=== PATIENT | female | born 1970 | race Caucasian/White ===

== ENCOUNTER 2016-05-21 23:56 | Emergency (ER) | payer OTHER ==
[~2016-05-21] VITALS: Ht 154.9 cm; Wt 74.8 kg
[~2016-05-21 23:56] MED LIST: LORA-258 PO
[2016-05-22 00:40] VITALS: BP_SYST 174
[2016-05-22] MEDS ORDERED: [UNRECOGNIZED DRUG - REMARK] PO (01:05)
[2016-05-22] MEDS ORDERED: ALBU8.5H8 INH (01:05)
[2016-05-22] MEDS ORDERED: LORazepam 2 MG/ML VIAL (FOR ER USE) IM ONE (01:45)
[2016-05-22] MEDS ORDERED: KETOROLAC TROMETHAMINE 60 MG/2 ML VIAL IM ONE (01:45)
[2016-05-22] MEDS: PROCHLORPERAZINE EDISYLATE 10 MG/2 ML VIAL IM ONE ×2 (02:08→02:19)
[2016-05-22 02:35] VITALS: BP_SYST 157
== END 2016-05-22 02:35 | disposition home or self-care (01) ==
LOC: SED 23:56
DX: M54.2 Cervicalgia (principal); M54.9 Dorsalgia, unspecified; I10 Essential (primary) hypertension; J45.909 Unspecified asthma, uncomplicated; F41.9 Anxiety disorder, unspecified; E78.00 Pure hypercholesterolemia, unspecified
CPT/HCPCS: 93005; 96374; 96375; 99284; J0780; J1885; J2060

== ENCOUNTER 2018-03-24 11:23 | Emergency (ER) | payer MEDICAID ==
[~2018-03-24] VITALS: Ht 154.9 cm; Wt 72.6 kg
[~2018-03-24 11:23] MED LIST changes: +ALBU8.5H8 INH; +[UNRECOGNIZED DRUG - REMARK] PO
[2018-03-24 11:27] VITALS: BP_SYST 140
[2018-03-24] MEDS ORDERED: MORPHINE 4 MG/ML INJ. SYRINGE IVP ONE ×2 (11:45→12:45)
[2018-03-24] MEDS ORDERED: METHADONE HCL 10 MG TABLET PO ONE ×2 (11:45)
[2018-03-24] MEDS ORDERED: FERROUS SULFATE PO (12:08)
[2018-03-24] MEDS ORDERED: OXYC-128 PO (12:08)
[2018-03-24] MEDS ORDERED: SULF1TAB3 PO (12:08)
[2018-03-24 12:13] LABS: BILIRUBIN,URINE NEGATIVE (NEGATIVE); BLOOD, URINE 1+ (NEGATIVE); CLARITY/URINE CLEAR (CLEAR); COLOR,URINE YELLOW (YELLOW); GLUCOSE,URINE NEGATIVE (NEGATIVE); KETONES,URINE NEGATIVE (NEGATIVE); LEUKOCYTE ESTERASE ,URINE 2+ (NEGATIVE); NITRITE, URINE NEGATIVE (NEGATIVE); PH,URINE 6.5 (5.0-8.0); PROTEIN URINE TRACE (NEGATIVE); UROBILINOGEN,URINE 0.2 (0.2-1.0)
[2018-03-24 12:18] LABS: BACTERIA,URINE FEW /HPF (None Seen); MUCUS,URINE 1+ /LPF (None Seen); YEAST,URINE Few /HPF (None Seen)
[2018-03-24 12:27] LABS: EOSINOPHILS # (AUTO) 0.2 K/uL (0.0-0.4); PLATELET COUNT (AUTO) 668 K/uL (130-430); WHITE BLOOD COUNT (AUTO) 6.5 K/uL (4.8-10.8)
[2018-03-24 12:30] LABS: CALCIUM 8.7 mg/dL (8.4-11.0); CREATININE 0.9 mg/dL (0.55-1.30); POTASSIUM 4.3 mmol/L (3.5-5.1)
[2018-03-24 12:35] LABS: ALBUMIN 3.2 g/dL (3.4-4.8); TOTAL BILIRUBIN 0.6 mg/dL (0.0-1.0)
[2018-03-24] MEDS ORDERED: cefTRIAXone 1 GM IVPB PREMIX 50 ML IV ONE (12:45)
[2018-03-24] MEDS ORDERED: NACL 0.9% 1,000 ML IV ONE (12:45)
[2018-03-24 12:48] LABS: BASOPHILS # (AUTO) 0.1 K/uL (0.0-0.2); BASOPHILS % (AUTO) 1.6 % (0.0-2.0); EOSINOPHILS % (AUTO) 3.7 % (0.0-4.0); HEMATOCRIT 38.8 % (36-48); HEMOGLOBIN 12.6 g/dL (12.0-16.0); LYMPHOCYTES # (AUTO) 2.3 K/uL (1.0-5.5); LYMPHOCYTES % (AUTO) 34.6 % (20.5-51.5); MEAN CORPUSCULAR HEMOGLOBIN 29 pg (27-31); MEAN CORPUSCULAR HGB CONC 33 % (32-36); MEAN CORPUSCULAR VOLUME 88 fL (79.0-98.0); MONOCYTES # (AUTO) 0.6 K/uL (0.0-1.0); MONOCYTES % (AUTO) 8.9 % (1.7-9.3); NEUTROPHILS # (AUTO) 3.3 K/uL (1.8-7.7); NEUTROPHILS % (AUTO) 51.2 % (40.0-70.0); RED BLOOD CELL COUNT(AUTO) 4.43 MIL/uL (4.2-6.2); RED CELL DISTRIBUTION WIDTH 15.8 % (9.0-15.0)
[2018-03-24] MEDS ORDERED: hydrALAZINE HCL 20 MG/ML VIAL IVP ONE (13:30)
[2018-03-24] MEDS ORDERED: fentaNYL CITRATE/PF 100 MCG/2 ML AMP IVP ONE (15:15)
[2018-03-24 16:34] VITALS: BP_SYST 140
== END 2018-03-24 16:19 | disposition home or self-care (01) ==
LOC: SED 11:23
DX: N20.0 Calculus of kidney (principal); N39.0 Urinary tract infection, site not specified; E78.00 Pure hypercholesterolemia, unspecified; J45.909 Unspecified asthma, uncomplicated; I10 Essential (primary) hypertension; Z90.49 Acquired absence of other specified parts of digestive tract; Z79.899 Other long term (current) drug therapy
CPT/HCPCS: 36415; 80053; 81000; 81025; 85025; 87040; 87086; 96365; 96375; 96376; 99283; J0360; J0696; J2270; J3010; J7030

== ENCOUNTER 2018-04-11 09:37 | Inpatient (IN) | payer MEDICAID, OTHER ==
[~2018-04-11] VITALS: Ht 154.9 cm; Wt 73.5 kg
[~2018-04-11 09:37] MED LIST changes: +FERROUS SULFATE PO; +OXYC-128 PO; +SULF1TAB3 PO
[2018-04-11] MEDS ORDERED: NACL 0.9% 1,000 ML IV ONE (09:41)
[2018-04-11] MEDS ORDERED: MORPHINE 4 MG/ML INJ. SYRINGE IVP ONE ×2 (09:45→10:30)
[2018-04-11] MEDS ORDERED: ONDANSETRON HCL 4 MG/2 ML VIAL IVP ONE (09:45)
[2018-04-11 09:52] VITALS: BP_SYST 159
[2018-04-11 10:19] LABS: HEMATOCRIT 37.3 % (36-48); HEMOGLOBIN 12.3 g/dL (12.0-16.0); MEAN CORPUSCULAR HEMOGLOBIN 29 pg (27-31); MEAN CORPUSCULAR HGB CONC 33 % (32-36); MEAN CORPUSCULAR VOLUME 89 fL (79.0-98.0); RED BLOOD CELL COUNT(AUTO) 4.21 MIL/uL (4.2-6.2); RED CELL DISTRIBUTION WIDTH 17.2 % (9.0-15.0)
[2018-04-11 10:20] LABS: BASOPHILS # (AUTO) 0.1 K/uL (0.0-0.2); BASOPHILS % (AUTO) 0.9 % (0.0-2.0); EOSINOPHILS # (AUTO) 0.3 K/uL (0.0-0.4); EOSINOPHILS % (AUTO) 2.6 % (0.0-4.0); LYMPHOCYTES # (AUTO) 2.5 K/uL (1.0-5.5); LYMPHOCYTES % (AUTO) 18.6 % (20.5-51.5); MONOCYTES # (AUTO) 1.3 K/uL (0.0-1.0); NEUTROPHILS # (AUTO) 9.1 K/uL (1.8-7.7); NEUTROPHILS % (AUTO) 67.9 % (40.0-70.0); PLATELET COUNT (AUTO) 360 K/uL (130-430)
[2018-04-11 10:21] LABS: WHITE BLOOD COUNT (AUTO) 13.3 K/uL (4.8-10.8)
[2018-04-11 10:26] LABS: CALCIUM 8.8 mg/dL (8.4-11.0); CREATININE 0.91 mg/dL (0.55-1.30); POTASSIUM 4.1 mmol/L (3.5-5.1)
[2018-04-11] MEDS ORDERED: DIPHENHYDRAMINE INJ 50 MG/ML VIAL IVP ONE (10:30)
[2018-04-11 10:31] LABS: INR 0.9 (0.8-1.2); PROTHROMBIN TIME 9.3 SECS (9.5-12.5)
[2018-04-11 10:32] LABS: ALBUMIN 3.1 g/dL (3.4-4.8); TOTAL BILIRUBIN 0.4 mg/dL (0.0-1.0)
[2018-04-11 10:42] LABS: BILIRUBIN,URINE NEGATIVE (NEGATIVE); BLOOD, URINE 3+ (NEGATIVE); CLARITY/URINE CLEAR (CLEAR); COLOR,URINE YELLOW (YELLOW); GLUCOSE,URINE NEGATIVE (NEGATIVE); KETONES,URINE NEGATIVE (NEGATIVE); LEUKOCYTE ESTERASE ,URINE 1+ (NEGATIVE); NITRITE, URINE NEGATIVE (NEGATIVE); PROTEIN URINE NEGATIVE (NEGATIVE); UROBILINOGEN,URINE 0.2 (0.2-1.0)
[2018-04-11 10:53] LABS: BARBITURATE, URINE NEGATIVE (NEG <=200); METHAMPHETAMINES SCREEN,URINE NEGATIVE (NEG <=500); OPIATE, URINE POSITIVE (NEG <=100); URINE AMPHETAMINE NEGATIVE (NEG <=500)
[2018-04-11 10:54] LABS: BENZODIAZEPINE, URINE NEGATIVE (NEG <=150); CANNABINOID, URINE NEGATIVE (NEG <=50); COCAINE, URINE NEGATIVE (NEG <=150); PHENCYCLIDINE SCREEN,URINE NEGATIVE (NEG <=25); UR TRICYCLIC ANTIDEPRESSANTS NEGATIVE (NEG <=300); URINE METHADONE NEGATIVE (NEG <=200); URINE OXYCODONE SCREEN NEGATIVE (NEG <=100); URINE PROPOXYPHENE SCREEN NEGATIVE (NEG <=300)
[2018-04-11 11:01] LABS: BACTERIA,URINE FEW /HPF (None Seen); MUCUS,URINE None Seen /LPF (None Seen); YEAST,URINE None Seen /HPF (None Seen)
[2018-04-11] MEDS ORDERED: KETOROLAC TROMETHAMINE 15 MG VIAL IVP PRN (12:00)
[2018-04-11] MEDS ORDERED: OXYCODONE/ACETAMINOPHEN 5-325 TABLET PO PRN (12:00)
[2018-04-11] MEDS ORDERED: ACETAMINOPHEN 325 MG TABLET PO PRN (12:00)
[2018-04-11] MEDS ORDERED: ZOLPIDEM TARTRATE 5 MG TABLET PO PRN (12:00)
[2018-04-11] MEDS ORDERED: MUPIROCIN 2% TOPICAL OINTMENT 22 GM TP PRN (12:00)
[2018-04-11] MEDS ORDERED: LORazepam 2 MG/ML VIAL IVP PRN (12:00)
[2018-04-11] MEDS ORDERED: MORPHINE 4 MG/ML INJ. SYRINGE IVP PRN (12:00)
[2018-04-11] MEDS ORDERED: DOCUSATE SODIUM 100 MG CAPSULE PO PRN (12:00)
[2018-04-11] MEDS ORDERED: cloNIDine HCL 0.1 MG TABLET PO PRN (12:15)
[2018-04-11 12:37] VITALS: BP_SYST 163
[2018-04-11 12:58] LABS: PHOSPHORUS 3.7 mg/dL (2.7-4.5); THYROID STIMULATING HORMONE 1.61 uIu/mL (0.34-4.82)
[2018-04-11] MEDS: NACL 0.9% 1,000 ML IV SCH (13:09)
[2018-04-11] MEDS: CEFTRIAXONE SOD 1 GM/ DEXTROSE,ISO 50 ML PREMIX IV SCH (13:37)
[2018-04-11 15:16] VITALS: BP_SYST 138
[2018-04-11] MEDS: ONDANSETRON HCL 4 MG/2 ML VIAL IVP PRN (15:17)
[2018-04-11] MEDS: OXYCODONE/ACETAMINOPHEN *10*mg/325 mg TABLET PO SCH ×2 (18:06→21:56)
[2018-04-11] MEDS: HYDROmorphone 2 MG/ML VIAL IVP PRN (20:35)
[2018-04-11] MEDS ORDERED: BACLOFEN 10 MG TABLET PO SCH (21:00)
[2018-04-11 22:00] VITALS: BP_SYST 142
[2018-04-12 00:13] VITALS: BP_SYST 132
[2018-04-12] MEDS: OXYCODONE/ACETAMINOPHEN *10*mg/325 mg TABLET PO SCH ×2 (01:30→05:54)
[2018-04-12] MEDS: HYDROmorphone 2 MG/ML VIAL IVP PRN ×5 (01:35→22:18)
[2018-04-12] MEDS: NACL 0.9% 1,000 ML IV SCH ×2 (01:36→17:07)
[2018-04-12 07:38] LABS: CREATININE 0.92 mg/dL (0.55-1.30); PHOSPHORUS 3.1 mg/dL (2.7-4.5); POTASSIUM 4.1 mmol/L (3.5-5.1)
[2018-04-12 08:00] LABS: HEMATOCRIT 34.4 % (36-48); HEMOGLOBIN 11.4 g/dL (12.0-16.0); MEAN CORPUSCULAR HEMOGLOBIN 30 pg (27-31); MEAN CORPUSCULAR VOLUME 89 fL (79.0-98.0); RED BLOOD CELL COUNT(AUTO) 3.86 MIL/uL (4.2-6.2); WHITE BLOOD COUNT (AUTO) 10.2 K/uL (4.8-10.8)
[2018-04-12 08:01] LABS: BASOPHILS % (AUTO) 0.4 % (0.0-2.0); EOSINOPHILS # (AUTO) 0.4 K/uL (0.0-0.4); EOSINOPHILS % (AUTO) 4.3 % (0.0-4.0); LYMPHOCYTES % (AUTO) 28.9 % (20.5-51.5); MEAN CORPUSCULAR HGB CONC 33 % (32-36); MONOCYTES # (AUTO) 1.2 K/uL (0.0-1.0); MONOCYTES % (AUTO) 11.8 % (1.7-9.3); NEUTROPHILS # (AUTO) 5.6 K/uL (1.8-7.7); NEUTROPHILS % (AUTO) 54.6 % (40.0-70.0); PLATELET COUNT (AUTO) 347 K/uL (130-430); RED CELL DISTRIBUTION WIDTH 17.6 % (9.0-15.0)
[2018-04-12] MEDS: ONDANSETRON HCL 4 MG/2 ML VIAL IVP PRN ×2 (08:51→14:07)
[2018-04-12] MEDS: CEFTRIAXONE SOD 1 GM/ DEXTROSE,ISO 50 ML PREMIX IV SCH (08:52)
[2018-04-12] MEDS: HYDROmorphone 2 MG TAB PO SCH ×4 (09:00→20:34)
[2018-04-12] MEDS ORDERED: cefTRIAXone 1 GM VIAL IV SCH (09:00)
[2018-04-12] MEDS ORDERED: HYDROmorphone 2 MG TAB PO SCH (09:00)
[2018-04-12] MEDS: BACLOFEN 10 MG TABLET PO SCH ×3 (09:00→20:34)
[2018-04-12 11:36] VITALS: BP_SYST 110
[2018-04-12 15:46] VITALS: BP_SYST 143
[2018-04-12 20:00] VITALS: BP_SYST 128
[2018-04-12 22:37] VITALS: BP_SYST 156
[2018-04-13] MEDS: HYDROmorphone 2 MG TAB PO SCH ×3 (01:00→09:16)
[2018-04-13 06:28] LABS: CALCIUM 8.2 mg/dL (8.4-11.0); CREATININE 0.88 mg/dL (0.55-1.30); POTASSIUM 4.3 mmol/L (3.5-5.1)
[2018-04-13 07:14] LABS: HEMATOCRIT 33.7 % (36-48); HEMOGLOBIN 11.4 g/dL (12.0-16.0); MEAN CORPUSCULAR VOLUME 89 fL (79.0-98.0); WHITE BLOOD COUNT (AUTO) 8.7 K/uL (4.8-10.8)
[2018-04-13 07:15] LABS: BASOPHILS # (AUTO) 0.1 K/uL (0.0-0.2); BASOPHILS % (AUTO) 0.6 % (0.0-2.0); EOSINOPHILS # (AUTO) 0.3 K/uL (0.0-0.4); EOSINOPHILS % (AUTO) 3.5 % (0.0-4.0); LYMPHOCYTES # (AUTO) 2.6 K/uL (1.0-5.5); LYMPHOCYTES % (AUTO) 29.7 % (20.5-51.5); MEAN CORPUSCULAR HEMOGLOBIN 30 pg (27-31); MEAN CORPUSCULAR HGB CONC 34 % (32-36); MONOCYTES # (AUTO) 1.1 K/uL (0.0-1.0); MONOCYTES % (AUTO) 12.6 % (1.7-9.3); NEUTROPHILS # (AUTO) 4.7 K/uL (1.8-7.7); NEUTROPHILS % (AUTO) 53.6 % (40.0-70.0); PLATELET COUNT (AUTO) 343 K/uL (130-430)
[2018-04-13 08:17] VITALS: BP_SYST 126
[2018-04-13] MEDS: CEFTRIAXONE SOD 1 GM/ DEXTROSE,ISO 50 ML PREMIX IV SCH (08:22)
[2018-04-13] MEDS: BACLOFEN 10 MG TABLET PO SCH (08:22)
[2018-04-13 10:40] VITALS: BP_SYST 126
[2018-04-13] MEDS ORDERED: HYDR-4272 PO (10:47)
[2018-04-13 11:18] VITALS: BP_SYST 146
== END 2018-04-13 12:45 | disposition home or self-care (01) | DRG 465 ==
LOC: SED 09:37 → SMU 12:05
PROVIDERS: ADMIT Family Medicine; ATTEND Family Medicine
DX: N20.0 Calculus of kidney (principal); E44.1 Mild protein-calorie malnutrition; N39.0 Urinary tract infection, site not specified; I10 Essential (primary) hypertension; E78.00 Pure hypercholesterolemia, unspecified; E78.5 Hyperlipidemia, unspecified; F11.20 Opioid dependence, uncomplicated; J45.909 Unspecified asthma, uncomplicated; Z90.49 Acquired absence of other specified parts of digestive tract; Z68.30 Body mass index [BMI] 30.0-30.9, adult
CPT/HCPCS: 36415; 71045; 76770; 80048; 80053; 80061; 80307; 81000-TC; 82550-TC; 83036; 83605; 83690-TC; 83735-TC; 84100-TC; 84443-TC; 84484; 85025; 85610-TC; 85730-TC; 87040-TC; 87086; 93005; 96361; 96374; 96375; 99285; J0696; J1170; J1200; J2270; J2405; J7030

== ENCOUNTER 2018-04-25 16:07 | Emergency (ER) | payer MEDICAID ==
[~2018-04-25] VITALS: Ht 180.3 cm; Wt 73.0 kg
[~2018-04-25 16:07] MED LIST changes: -ALBU8.5H8 INH; -FERROUS SULFATE PO; +HYDR-4272 PO; -LORA-258 PO; -OXYC-128 PO; -SULF1TAB3 PO; -[UNRECOGNIZED DRUG - REMARK] PO
[2018-04-25] MEDS ORDERED: MORPHINE 4 MG/ML INJ. SYRINGE IVP ONE ×2 (16:15→17:45)
[2018-04-25] MEDS ORDERED: KETOROLAC TROMETHAMINE 30 MG VIAL IVP ONE (16:15)
[2018-04-25] MEDS ORDERED: ONDANSETRON HCL 4 MG/2 ML VIAL IVP ONE (16:15)
[2018-04-25] MEDS ORDERED: NACL 0.9% 1,000 ML IV ONE (16:15)
[2018-04-25 16:18] VITALS: BP_SYST 150
[2018-04-25 16:51] LABS: HEMATOCRIT 35.2 % (36-48); HEMOGLOBIN 11.8 g/dL (12.0-16.0); MEAN CORPUSCULAR HEMOGLOBIN 30 pg (27-31); MEAN CORPUSCULAR HGB CONC 34 % (32-36); MEAN CORPUSCULAR VOLUME 89 fL (79.0-98.0); PLATELET COUNT (AUTO) 433 K/uL (130-430); RED BLOOD CELL COUNT(AUTO) 3.94 MIL/uL (4.2-6.2); RED CELL DISTRIBUTION WIDTH 17.3 % (9.0-15.0)
[2018-04-25 16:52] LABS: BASOPHILS % (AUTO) 0.9 % (0.0-2.0); LYMPHOCYTES # (AUTO) 3.2 K/uL (1.0-5.5); LYMPHOCYTES % (AUTO) 39.6 % (20.5-51.5); MONOCYTES % (AUTO) 12.8 % (1.7-9.3); NEUTROPHILS # (AUTO) 3.6 K/uL (1.8-7.7); NEUTROPHILS % (AUTO) 44.7 % (40.0-70.0)
[2018-04-25 16:53] LABS: BASOPHILS # (AUTO) 0.1 K/uL (0.0-0.2); EOSINOPHILS # (AUTO) 0.2 K/uL (0.0-0.4)
[2018-04-25 17:01] LABS: CALCIUM 8.6 mg/dL (8.4-11.0); CREATININE 0.82 mg/dL (0.55-1.30); POTASSIUM 3.6 mmol/L (3.5-5.1)
[2018-04-25 17:01] LABS: BILIRUBIN,URINE NEGATIVE (NEGATIVE); BLOOD, URINE 3+ (NEGATIVE); CLARITY/URINE HAZY (CLEAR); COLOR,URINE YELLOW (YELLOW); GLUCOSE,URINE NEGATIVE (NEGATIVE); KETONES,URINE NEGATIVE (NEGATIVE); LEUKOCYTE ESTERASE ,URINE 1+ (NEGATIVE); NITRITE, URINE NEGATIVE (NEGATIVE); PH,URINE 5.5 (5.0-8.0); PROTEIN URINE TRACE (NEGATIVE); UROBILINOGEN,URINE 0.2 (0.2-1.0)
[2018-04-25 17:05] LABS: ALBUMIN 3.3 g/dL (3.4-4.8); TOTAL BILIRUBIN 0.3 mg/dL (0.0-1.0)
[2018-04-25 17:19] LABS: BACTERIA,URINE MODERATE /HPF (None Seen); MUCUS,URINE None Seen /LPF (None Seen); RBC,URINE 80-100 /HPF (0-3)
[2018-04-25 17:27] LABS: BARBITURATE, URINE NEGATIVE (NEG <=200); METHAMPHETAMINES SCREEN,URINE NEGATIVE (NEG <=500); OPIATE, URINE POSITIVE (NEG <=100); URINE AMPHETAMINE NEGATIVE (NEG <=500); URINE METHADONE NEGATIVE (NEG <=200)
[2018-04-25 17:28] LABS: BENZODIAZEPINE, URINE NEGATIVE (NEG <=150); CANNABINOID, URINE NEGATIVE (NEG <=50); COCAINE, URINE NEGATIVE (NEG <=150); PHENCYCLIDINE SCREEN,URINE NEGATIVE (NEG <=25); UR TRICYCLIC ANTIDEPRESSANTS NEGATIVE (NEG <=300); URINE OXYCODONE SCREEN NEGATIVE (NEG <=100); URINE PROPOXYPHENE SCREEN NEGATIVE (NEG <=300)
[2018-04-25] MEDS ORDERED: cefTRIAXone 1 GM IVPB PREMIX 50 ML IV ONE (17:30)
[2018-04-25 17:54] LABS: INR 0.9 (0.8-1.2); PROTHROMBIN TIME 9.6 SECS (9.5-12.5)
[2018-04-25 18:45] VITALS: BP_SYST 150
== END 2018-04-25 18:45 | disposition home or self-care (01) ==
LOC: SED 16:07
DX: N39.0 Urinary tract infection, site not specified (principal); N23 Unspecified renal colic; E78.00 Pure hypercholesterolemia, unspecified; J45.909 Unspecified asthma, uncomplicated; I10 Essential (primary) hypertension; Z93.6 Other artificial openings of urinary tract status
CPT/HCPCS: 36415; 71045; 80053; 80307; 81000; 82150; 82550; 83605; 83690; 84484; 85025; 85610; 85730; 87040; 87086; 93005; 96374; 96375; 99284; J0696; J1885; J2270; J2405; J7030

== ENCOUNTER 2018-05-01 14:21 | Emergency (ER) | payer MEDICAID ==
[~2018-05-01] VITALS: Ht 154.9 cm; Wt 73.0 kg
[2018-05-01] MEDS ORDERED: NACL 0.9% 1,000 ML IV ONE (14:38)
[2018-05-01] MEDS ORDERED: ONDANSETRON HCL 4 MG/2 ML VIAL IVP ONE (14:45)
[2018-05-01] MEDS ORDERED: KETOROLAC TROMETHAMINE 30 MG VIAL IVP ONE (14:45)
[2018-05-01 14:48] VITALS: BP_SYST 139
--- NOTE | 2018-05-01 14:58 | NUR ---
Patient triaged and placed in waiting room. VSS and patient appears in no acute distress at this time. Accompanied by self, awaiting available bed, and MD notified of need for MSE.
--- NOTE | 2018-05-01 15:30 | NUR ---
Patient to ER bed 7 to gown for evaluation. Side rails up. Report given to Calos GARCIA.
[2018-05-01 15:47] LABS: RED BLOOD CELL COUNT(AUTO) 3.88 MIL/uL (4.2-6.2); WHITE BLOOD COUNT (AUTO) 8.1 K/uL (4.8-10.8)
[2018-05-01 15:48] LABS: BASOPHILS # (AUTO) 0.1 K/uL (0.0-0.2); BASOPHILS % (AUTO) 0.8 % (0.0-2.0); EOSINOPHILS # (AUTO) 0.1 K/uL (0.0-0.4); EOSINOPHILS % (AUTO) 1.5 % (0.0-4.0); HEMATOCRIT 34.8 % (36-48); HEMOGLOBIN 11.8 g/dL (12.0-16.0); LYMPHOCYTES % (AUTO) 36.4 % (20.5-51.5); MEAN CORPUSCULAR HEMOGLOBIN 31 pg (27-31); MEAN CORPUSCULAR HGB CONC 34 % (32-36); MEAN CORPUSCULAR VOLUME 90 fL (79.0-98.0); MONOCYTES % (AUTO) 12.2 % (1.7-9.3); NEUTROPHILS % (AUTO) 49.1 % (40.0-70.0); PLATELET COUNT (AUTO) 411 K/uL (130-430)
[2018-05-01 15:54] LABS: BILIRUBIN,URINE NEGATIVE (NEGATIVE); BLOOD, URINE NEGATIVE (NEGATIVE); CLARITY/URINE CLEAR (CLEAR); COLOR,URINE YELLOW (YELLOW); GLUCOSE,URINE NEGATIVE (NEGATIVE); KETONES,URINE NEGATIVE (NEGATIVE); LEUKOCYTE ESTERASE ,URINE 1+ (NEGATIVE); NITRITE, URINE NEGATIVE (NEGATIVE); PROTEIN URINE NEGATIVE (NEGATIVE); UROBILINOGEN,URINE 0.2 (0.2-1.0)
[2018-05-01 15:56] LABS: CALCIUM 8.9 mg/dL (8.4-11.0); CREATININE 1.13 mg/dL (0.55-1.30); POTASSIUM 3.9 mmol/L (3.5-5.1)
--- NOTE | 2018-05-01 15:58 | NUR ---
Pt AAOx4 ambulated into ED c/o 11/18 R flank pain. Pt reports taking ibuprofen and norco with little to no relief. Pt was dx with L kidney stones and had them removed on 04/15/18 with a stent placed on the same day in [facility]. Pt has an appointment next thursday to have stent removed. Pt currently on antibiotics and states PMD called to refer her to ED due to "a really bad infection." Skin pink dry and warm, breathing even and unlabored. No other injuries/complaints per pt/noted. Will continue to monitor.
[2018-05-01 16:00] LABS: RBC,URINE 0-3 /HPF (0-3); WBC,URINE 20-50 /HPF (0-3)
[2018-05-01] MEDS ORDERED: DIPHENHYDRAMINE INJ 50 MG/ML VIAL IVP ONE (16:00)
[2018-05-01] MEDS ORDERED: MORPHINE 4 MG/ML INJ. SYRINGE IVP ONE (16:00)
--- NOTE | 2018-05-01 16:00 | NUR ---
ER Dr. Perdomo at bedside examining patient.
[2018-05-01 16:01] LABS: BACTERIA,URINE FEW /HPF (None Seen)
[2018-05-01 16:02] LABS: ALBUMIN 3.1 g/dL (3.4-4.8); INR 0.9 (0.8-1.2); PROTHROMBIN TIME 9.5 SECS (9.5-12.5); TOTAL BILIRUBIN 0.4 mg/dL (0.0-1.0)
--- NOTE | 2018-05-01 16:17 | NUR ---
Medication administered. Pt tolerated well. No adverse reactions noted. [place] provided and room lights turned off per pt request. Will continue to monitor.
--- NOTE | 2018-05-01 17:08 | NUR ---
Pt reports 0/[address] Perdomo notified. Pt laying comfortably in bed with no signs of distress.
[2018-05-01 19:13] VITALS: BP_SYST 142
--- NOTE | 2018-05-01 19:13 | NUR ---
Patient given written and verbal discharge instructions and verbalizes understanding. ER MD Perdomo discussed with patient the results and treatment provided. Patient in stable condition. ID arm band removed. IV catheter removed intact and dressing applied, no active bleeding. Rx of Tramadol, Nitrofurantoin given. Patient educated on pain management and to follow up with PMD. Pain Scale 0. Opportunity for questions provided and answered. Medication side effect fact sheet provided.
== END 2018-05-01 19:13 | disposition home or self-care (01) ==
LOC: SED 14:21
DX: N23 Unspecified renal colic (principal); I10 Essential (primary) hypertension; J45.909 Unspecified asthma, uncomplicated; E78.00 Pure hypercholesterolemia, unspecified; Z43.6 Encounter for attention to other artificial openings of urinary tract; Z87.440 Personal history of urinary (tract) infections; Z87.442 Personal history of urinary calculi; Z90.49 Acquired absence of other specified parts of digestive tract
CPT/HCPCS: 36415; 80053; 81000; 81025; 82150; 83605; 83690; 85025; 85610; 85730; 87040; 87086; 96374; 96375; 99283; J1200; J1885; J2270; J2405; J7030

== ENCOUNTER 2018-05-11 20:24 | Inpatient (IN) | payer MEDICAID ==
[~2018-05-11] VITALS: Ht 154.9 cm; Wt 76.3 kg
[2018-05-11 21:24] VITALS: BP_SYST 129
[2018-05-11 21:52] LABS: BILIRUBIN,URINE NEGATIVE (NEGATIVE); BLOOD, URINE 2+ (NEGATIVE); CLARITY/URINE HAZY (CLEAR); COLOR,URINE YELLOW (YELLOW); GLUCOSE,URINE NEGATIVE (NEGATIVE); KETONES,URINE NEGATIVE (NEGATIVE); LEUKOCYTE ESTERASE ,URINE 1+ (NEGATIVE); NITRITE, URINE NEGATIVE (NEGATIVE); PROTEIN URINE 1+ (NEGATIVE); UROBILINOGEN,URINE 0.2 (0.2-1.0)
[2018-05-11 22:25] LABS: RBC,URINE 50-80 /HPF (0-3)
[2018-05-11 22:26] LABS: BACTERIA,URINE FEW /HPF (None Seen); FINE GRANULAR CASTS,URINE 0-10 /LPF (None Seen); MUCUS,URINE None Seen /LPF (None Seen); WBC,URINE 50-80 /HPF (0-3); YEAST,URINE Few /HPF (None Seen)
[2018-05-11] MEDS ORDERED: NACL 0.9% 1,000 ML IV ONE (23:44)
[2018-05-11] MEDS ORDERED: DIPHENHYDRAMINE INJ 50 MG/ML VIAL IVP ONE (23:45)
[2018-05-11] MEDS ORDERED: cefTRIAXone 1 GM IVPB PREMIX 50 ML IV ONE (23:45)
[2018-05-11] MEDS ORDERED: KETOROLAC TROMETHAMINE 30 MG VIAL IVP ONE (23:45)
[2018-05-12 00:17] LABS: HEMATOCRIT 35.6 % (36-48); HEMOGLOBIN 11.9 g/dL (12.0-16.0); MEAN CORPUSCULAR HEMOGLOBIN 31 pg (27-31); MEAN CORPUSCULAR HGB CONC 34 % (32-36); MEAN CORPUSCULAR VOLUME 91 fL (79.0-98.0); RED CELL DISTRIBUTION WIDTH 15.6 % (9.0-15.0); WHITE BLOOD COUNT (AUTO) 7.4 K/uL (4.8-10.8)
[2018-05-12 00:18] LABS: BASOPHILS # (AUTO) 0.1 K/uL (0.0-0.2); BASOPHILS % (AUTO) 0.7 % (0.0-2.0); EOSINOPHILS # (AUTO) 0.2 K/uL (0.0-0.4); EOSINOPHILS % (AUTO) 2.1 % (0.0-4.0); LYMPHOCYTES # (AUTO) 3.4 K/uL (1.0-5.5); LYMPHOCYTES % (AUTO) 45.9 % (20.5-51.5); MONOCYTES # (AUTO) 0.7 K/uL (0.0-1.0); NEUTROPHILS # (AUTO) 3.1 K/uL (1.8-7.7); NEUTROPHILS % (AUTO) 42.3 % (40.0-70.0); PLATELET COUNT (AUTO) 369 K/uL (130-430)
[2018-05-12 00:22] LABS: CALCIUM 8.5 mg/dL (8.4-11.0); CREATININE 1.24 mg/dL (0.55-1.30); POTASSIUM 4.1 mmol/L (3.5-5.1)
[2018-05-12 00:28] LABS: ALBUMIN 3.4 g/dL (3.4-4.8); TOTAL BILIRUBIN 0.3 mg/dL (0.0-1.0)
[2018-05-12] MEDS ORDERED: DIPHENHYDRAMINE INJ 50 MG/ML VIAL IVP ONE (02:00)
[2018-05-12] MEDS ORDERED: fentaNYL CITRATE/PF 100 MCG/2 ML AMP IVP ONE (02:00)
[2018-05-12] MEDS ORDERED: SULF1TAB3 PO (02:20)
[2018-05-12] MEDS ORDERED: TAMS-11 PO (02:20)
[2018-05-12] MEDS ORDERED: DIF100 PO (02:20)
[2018-05-12] MEDS ORDERED: LISI2.5T48 PO (02:20)
[2018-05-12] MEDS ORDERED: TRAM50TA2 PO (02:20)
[2018-05-12] MEDS ORDERED: DOXY100T2 PO (02:20)
[2018-05-12] MEDS ORDERED: ONDA4TAB5 PO (02:20)
[2018-05-12 02:57] VITALS: BP_SYST 130
[2018-05-12] MEDS ORDERED: LEVOFLOXACIN 500 MG/D5W 100 ML IV SCH (03:00)
[2018-05-12] MEDS: MORPHINE 4 MG/ML INJ. SYRINGE IVP PRN ×5 (03:30→20:57)
[2018-05-12] MEDS: NACL 0.9% 1,000 ML IV SCH ×2 (03:31→15:56)
[2018-05-12] MEDS ORDERED: LEVOFLOXACIN 500 MG/D5W 100 ML IV ONE (05:09)
[2018-05-12 08:38] VITALS: BP_SYST 115
[2018-05-12 11:12] LABS: CALCIUM 7.8 mg/dL (8.4-11.0); CREATININE 0.98 mg/dL (0.55-1.30); POTASSIUM 4.1 mmol/L (3.5-5.1)
[2018-05-12 12:00] LABS: HEMATOCRIT 32.7 % (36-48); HEMOGLOBIN 10.8 g/dL (12.0-16.0); LYMPHOCYTES % (AUTO) 51.3 % (20.5-51.5); MEAN CORPUSCULAR HEMOGLOBIN 30 pg (27-31); MEAN CORPUSCULAR HGB CONC 33 % (32-36); MEAN CORPUSCULAR VOLUME 92 fL (79.0-98.0); NEUTROPHILS % (AUTO) 34.1 % (40.0-70.0); PLATELET COUNT (AUTO) 311 K/uL (130-430); RED BLOOD CELL COUNT(AUTO) 3.57 MIL/uL (4.2-6.2); RED CELL DISTRIBUTION WIDTH 16.1 % (9.0-15.0); WHITE BLOOD COUNT (AUTO) 5.3 K/uL (4.8-10.8)
[2018-05-12 12:01] LABS: BASOPHILS % (AUTO) 0.6 % (0.0-2.0); EOSINOPHILS # (AUTO) 0.1 K/uL (0.0-0.4); EOSINOPHILS % (AUTO) 2.7 % (0.0-4.0); LYMPHOCYTES # (AUTO) 2.7 K/uL (1.0-5.5); MONOCYTES # (AUTO) 0.6 K/uL (0.0-1.0); MONOCYTES % (AUTO) 11.3 % (1.7-9.3); NEUTROPHILS # (AUTO) 1.8 K/uL (1.8-7.7)
[2018-05-12 12:58] VITALS: BP_SYST 122
[2018-05-12 16:30] VITALS: BP_SYST 116
[2018-05-12] MEDS ORDERED: ACETAMINOPHEN 325 MG TABLET PO PRN (16:45)
[2018-05-12] MEDS: LEVOFLOXACIN 500 MG/D5W 100 ML IV SCH (17:57)
[2018-05-12 20:00] VITALS: BP_SYST 119
[2018-05-13] MEDS: NACL 0.9% 1,000 ML IV SCH ×3 (00:07→21:18)
[2018-05-13 00:51] VITALS: BP_SYST 95
[2018-05-13] MEDS: MORPHINE 4 MG/ML INJ. SYRINGE IVP PRN ×6 (01:04→21:17)
[2018-05-13 06:22] LABS: CALCIUM 8.6 mg/dL (8.4-11.0); CREATININE 0.9 mg/dL (0.55-1.30); POTASSIUM 4.6 mmol/L (3.5-5.1)
[2018-05-13 08:18] VITALS: BP_SYST 138
[2018-05-13] MEDS: FAMOTIDINE 20 MG TABLET PO SCH (09:04)
[2018-05-13 12:51] VITALS: BP_SYST 124
[2018-05-13] MEDS: LEVOFLOXACIN 500 MG/D5W 100 ML IV SCH (15:46)
[2018-05-13] MEDS: ONDANSETRON HCL 4 MG/2 ML VIAL IVP PRN (15:48)
[2018-05-13 16:29] VITALS: BP_SYST 145
[2018-05-13 20:00] VITALS: BP_SYST 122
[2018-05-14] MEDS: NACL 0.9% 1,000 ML IV SCH ×2 (00:18→11:31)
[2018-05-14 00:37] VITALS: BP_SYST 116
[2018-05-14] MEDS: MORPHINE 4 MG/ML INJ. SYRINGE IVP PRN ×5 (01:17→17:26)
[2018-05-14 07:45] VITALS: BP_SYST 138
[2018-05-14] MEDS ORDERED: FLUCONAZOLE 100 MG TABLET (DIFLUCAN) PO ONE (08:45)
[2018-05-14] MEDS: FAMOTIDINE 20 MG TABLET PO SCH (09:16)
[2018-05-14] MEDS: ONDANSETRON HCL 4 MG/2 ML VIAL IVP PRN (10:06)
[2018-05-14] MEDS ORDERED: DIPHENHYDRAMINE HCL 25 MG CAPSULE PO ONE (11:45)
[2018-05-14 12:42] VITALS: BP_SYST 129
[2018-05-14 17:24] VITALS: BP_SYST 110
[2018-05-14] MEDS: LEVOFLOXACIN 500 MG/D5W 100 ML IV SCH (17:31)
[2018-05-14] MEDS ORDERED: SULF1TAB48 PO (18:17)
[2018-05-14 18:20] VITALS: BP_SYST 110
[2018-05-14] MEDS ORDERED: FLUCONAZOLE 100 MG TABLET (DIFLUCAN) PO SCH (21:00)
[2018-05-15] MEDS ORDERED: FLUCONAZOLE 100 MG TABLET (DIFLUCAN) PO SCH (09:00)
== END 2018-05-14 19:00 | disposition home or self-care (01) | DRG 466 ==
LOC: SED 20:24 → SMU 05-12 02:24
PROVIDERS: ADMIT Internal Medicine; ATTEND Internal Medicine
DX: T83.84XA Pain due to genitourinary prosthetic devices, implants and grafts, initial encounter (principal); E78.00 Pure hypercholesterolemia, unspecified; N39.0 Urinary tract infection, site not specified; I10 Essential (primary) hypertension; J45.909 Unspecified asthma, uncomplicated; Y73.8 Miscellaneous gastroenterology and urology devices associated with adverse incidents, not elsewhere classified; N20.0 Calculus of kidney; Z87.440 Personal history of urinary (tract) infections; Z87.442 Personal history of urinary calculi; Z90.49 Acquired absence of other specified parts of digestive tract; Y92.89 Other specified places as the place of occurrence of the external cause
CPT/HCPCS: 36415; 76770; 80048; 80053; 81000-TC; 83605; 85025; 87040-TC; 87081; 87086; 96365; 96375; 96376; 99285; J0696; J1200; J1885; J1956; J2270; J2405; J3010; J7030; Q0163

== ENCOUNTER 2018-05-31 16:21 | Emergency (ER) | payer MEDICAID, OTHER ==
[~2018-05-31] VITALS: Ht 157.5 cm; Wt 70.3 kg
[~2018-05-31 16:21] MED LIST changes: +DIF100 PO; -HYDR-4272 PO; +LISI2.5T48 PO; +ONDA4TAB5 PO; +SULF1TAB3 PO; +SULF1TAB48 PO; +TAMS-11 PO; +TRAM50TA2 PO
[2018-05-31 16:24] VITALS: BP_SYST 136
--- NOTE | 2018-05-31 17:03 | NUR ---
Patient to ER bed 8 to gown for evaluation. Side rails up. Report given to Ling GARCIA.
--- NOTE | 2018-05-31 17:15 | NUR ---
ER Dr. CORNELIUS at bedside examining patient.
[2018-05-31] MEDS ORDERED: NACL 0.9% 1,000 ML IV ONE (17:17)
[2018-05-31] MEDS ORDERED: MORPHINE 4 MG/ML INJ. SYRINGE IVP ONE ×3 (17:30→19:15)
[2018-05-31] MEDS ORDERED: ONDANSETRON HCL 4 MG/2 ML VIAL IVP ONE (17:30)
--- NOTE | 2018-05-31 17:45 | NUR ---
PATIENT GETTING X RAY IN BED.
--- NOTE | 2018-05-31 17:45 | NUR ---
PATIENT COMPLAINING OF ACHING RIGHT FLANK PAIN 9/10 FOR 2 DAYS. PATIENT NOT COMPLAINING OF SOB. PATIENT HAS SOME NAUSEA. PATIENT SAID SHE HAS SOME BLOOD AND DICHARGE IN URINE. PATIENT STATES SHE IS ALSO INCONTINENT. PATIENT ALERT AND ORIENTED X4.
[2018-05-31 17:54] LABS: BASOPHILS % (AUTO) 0.8 % (0.0-2.0); EOSINOPHILS # (AUTO) 0.1 K/uL (0.0-0.4); EOSINOPHILS % (AUTO) 1.9 % (0.0-4.0); HEMATOCRIT 36.5 % (36-48); HEMOGLOBIN 12.3 g/dL (12.0-16.0); LYMPHOCYTES # (AUTO) 2.5 K/uL (1.0-5.5); LYMPHOCYTES % (AUTO) 43.1 % (20.5-51.5); MEAN CORPUSCULAR HEMOGLOBIN 31 pg (27-31); MEAN CORPUSCULAR HGB CONC 34 % (32-36); MEAN CORPUSCULAR VOLUME 93 fL (79.0-98.0); MONOCYTES # (AUTO) 0.6 K/uL (0.0-1.0); MONOCYTES % (AUTO) 10.9 % (1.7-9.3); NEUTROPHILS # (AUTO) 2.5 K/uL (1.8-7.7); NEUTROPHILS % (AUTO) 43.3 % (40.0-70.0); PLATELET COUNT (AUTO) 369 K/uL (130-430); RED BLOOD CELL COUNT(AUTO) 3.95 MIL/uL (4.2-6.2); RED CELL DISTRIBUTION WIDTH 15.2 % (9.0-15.0); WHITE BLOOD COUNT (AUTO) 5.8 K/uL (4.8-10.8)
[2018-05-31 18:05] LABS: CALCIUM 8.9 mg/dL (8.4-11.0); CREATININE 0.96 mg/dL (0.55-1.30); POTASSIUM 3.8 mmol/L (3.5-5.1)
[2018-05-31 18:08] LABS: INR 0.9 (0.8-1.2); PROTHROMBIN TIME 9.2 SECS (9.5-12.5)
[2018-05-31 18:11] LABS: ALBUMIN 3.4 g/dL (3.4-4.8); TOTAL BILIRUBIN 0.1 mg/dL (0.0-1.0)
[2018-05-31 18:21] LABS: BILIRUBIN,URINE NEGATIVE (NEGATIVE); BLOOD, URINE 3+ (NEGATIVE); CLARITY/URINE HAZY (CLEAR); COLOR,URINE YELLOW (YELLOW); GLUCOSE,URINE NEGATIVE (NEGATIVE); KETONES,URINE NEGATIVE (NEGATIVE); LEUKOCYTE ESTERASE ,URINE TRACE (NEGATIVE); NITRITE, URINE NEGATIVE (NEGATIVE); PROTEIN URINE 1+ (NEGATIVE); UROBILINOGEN,URINE 0.2 (0.2-1.0)
[2018-05-31 18:42] LABS: BACTERIA,URINE FEW /HPF (None Seen); MUCUS,URINE None Seen /LPF (None Seen); RBC,URINE >100 /HPF (0-3)
--- NOTE | 2018-05-31 19:10 | NUR ---
Pt c/o lower abdominal pain that radiates to lower back at 09/18. Dr. Perdomo notified.
--- NOTE | 2018-05-31 19:10 | NUR ---
ENDORSED CARE TO NIGHT NURSE CHELA.
[2018-05-31 19:36] VITALS: BP_SYST 118
--- NOTE | 2018-05-31 19:36 | NUR ---
Patient given written and verbal discharge instructions and verbalizes understanding. ER MD discussed with patient the results and treatment provided. Patient in stable condition. ID arm band removed. IV catheter removed intact and dressing applied, no active bleeding. Rx of Tramadol and Zofran given. Patient educated on pain management and to follow up with PMD. Pain Scale 2/10. Opportunity for questions provided and answered. Medication side effect fact sheet provided.
== END 2018-05-31 19:36 | disposition home or self-care (01) ==
LOC: SED 16:21
DX: N20.0 Calculus of kidney (principal); J45.909 Unspecified asthma, uncomplicated; I10 Essential (primary) hypertension; E78.00 Pure hypercholesterolemia, unspecified; Z90.49 Acquired absence of other specified parts of digestive tract; Z79.899 Other long term (current) drug therapy
CPT/HCPCS: 36415; 71045; 80053; 81000; 82150; 82550; 83605; 83690; 85025; 85610; 85730; 87040; 87086; 96361; 96374; 96375; 96376; 99284; J2270; J2405; J7030

== ENCOUNTER 2018-07-19 15:39 | Emergency (ER) | payer MEDICAID ==
[~2018-07-19] VITALS: Ht 160 cm; Wt 77.1 kg
[2018-07-19 15:49] VITALS: BP_SYST 158
[2018-07-19] MEDS ORDERED: NACL 0.9% 1,000 ML IV ONE (15:57)
[2018-07-19] MEDS ORDERED: KETOROLAC TROMETHAMINE 30 MG VIAL IVP ONE (16:00)
[2018-07-19] MEDS ORDERED: ONDANSETRON HCL 4 MG/2 ML VIAL IVP ONE (16:00)
[2018-07-19 16:17] LABS: BASOPHILS # (AUTO) 0.1 K/uL (0.0-0.2); BASOPHILS % (AUTO) 0.7 % (0.0-2.0); EOSINOPHILS # (AUTO) 0.1 K/uL (0.0-0.4); EOSINOPHILS % (AUTO) 1.1 % (0.0-4.0); HEMATOCRIT 37.1 % (36-48); HEMOGLOBIN 12.5 g/dL (12.0-16.0); LYMPHOCYTES # (AUTO) 3.2 K/uL (1.0-5.5); LYMPHOCYTES % (AUTO) 33.7 % (20.5-51.5); MEAN CORPUSCULAR HEMOGLOBIN 32 pg (27-31); MEAN CORPUSCULAR HGB CONC 34 % (32-36); MEAN CORPUSCULAR VOLUME 94 fL (79.0-98.0); MONOCYTES # (AUTO) 1.1 K/uL (0.0-1.0); MONOCYTES % (AUTO) 11.2 % (1.7-9.3); NEUTROPHILS # (AUTO) 5.1 K/uL (1.8-7.7); NEUTROPHILS % (AUTO) 53.3 % (40.0-70.0); PLATELET COUNT (AUTO) 363 K/uL (130-430); RED BLOOD CELL COUNT(AUTO) 3.97 MIL/uL (4.2-6.2); RED CELL DISTRIBUTION WIDTH 13.4 % (9.0-15.0); WHITE BLOOD COUNT (AUTO) 9.5 K/uL (4.8-10.8)
[2018-07-19 16:30] LABS: CALCIUM 8.6 mg/dL (8.4-11.0); CREATININE 0.69 mg/dL (0.55-1.30); POTASSIUM 3.6 mmol/L (3.5-5.1)
[2018-07-19 16:31] LABS: BILIRUBIN,URINE NEGATIVE (NEGATIVE); BLOOD, URINE TRACE (NEGATIVE); CLARITY/URINE SL CLOUDY (CLEAR); COLOR,URINE YELLOW (YELLOW); GLUCOSE,URINE NEGATIVE (NEGATIVE); KETONES,URINE NEGATIVE (NEGATIVE); LEUKOCYTE ESTERASE ,URINE NEGATIVE (NEGATIVE); NITRITE, URINE NEGATIVE (NEGATIVE); PROTEIN URINE NEGATIVE (NEGATIVE); UROBILINOGEN,URINE 0.2 (0.2-1.0)
[2018-07-19 16:35] LABS: ALBUMIN 3.1 g/dL (3.4-4.8); TOTAL BILIRUBIN 0.2 mg/dL (0.0-1.0)
[2018-07-19 16:37] LABS: BACTERIA,URINE FEW /HPF (None Seen); MUCUS,URINE 3+ /LPF (None Seen); WBC,URINE 0-3 /HPF (0-3)
[2018-07-19] MEDS ORDERED: LORazepam 2 MG/ML VIAL (FOR ER USE) IVP ONE (17:00)
[2018-07-19] MEDS ORDERED: MORPHINE 2 MG/ML INJ. SYRINGE IVP ONE (17:00)
[2018-07-19 18:30] VITALS: BP_SYST 146
== END 2018-07-19 18:30 | disposition home or self-care (01) ==
LOC: SED 15:39
DX: N20.0 Calculus of kidney (principal); J45.909 Unspecified asthma, uncomplicated; I10 Essential (primary) hypertension; E78.00 Pure hypercholesterolemia, unspecified; Z90.49 Acquired absence of other specified parts of digestive tract; Z79.899 Other long term (current) drug therapy
CPT/HCPCS: 36415; 74176; 80053; 81000; 85025; 96374; 96375; 99284; J1885; J2060; J2270; J2405; J7030

== ENCOUNTER 2018-07-26 21:00 | Emergency (ER) | payer MEDICAID ==
[~2018-07-26] VITALS: Ht 154.9 cm; Wt 78.0 kg
[2018-07-26 22:37] VITALS: BP_SYST 156
--- NOTE | 2018-07-26 22:45 | NUR ---
EKG performed in triage.
--- NOTE | 2018-07-26 22:48 | NUR ---
Pt placed to ER bed 03, to gown, to phototypesetting equipment monitor. Report given to JOSE Silva.
--- NOTE | 2018-07-26 23:00 | NUR ---
Pt C/O N/V since yesterday, Right and Left kidney stone pain since this morning and new onset of chest pain in the lobby. Pt reports taking her daughters Fentanyl for her pain with some relief. Pt has hx of kidney stones and unable to see her urologist until September 01. Has 1 stone on the RT and 2 stones on the LT according to pt. Hx of IBS and states the abd pain is normal. Denies any shortness of breath, N/V at this time, or any other symptoms at this time. Will continue to monitor.
[2018-07-26 23:21] LABS: BILIRUBIN,URINE NEGATIVE (NEGATIVE); BLOOD, URINE NEGATIVE (NEGATIVE); CLARITY/URINE CLEAR (CLEAR); COLOR,URINE YELLOW (YELLOW); GLUCOSE,URINE NEGATIVE (NEGATIVE); KETONES,URINE NEGATIVE (NEGATIVE); LEUKOCYTE ESTERASE ,URINE NEGATIVE (NEGATIVE); NITRITE, URINE NEGATIVE (NEGATIVE); PH,URINE 7.5 (5.0-8.0); PROTEIN URINE TRACE (NEGATIVE); UROBILINOGEN,URINE 0.2 (0.2-1.0)
--- NOTE | 2018-07-26 23:30 | NUR ---
# 22 gauge angiocath placed to RT HAND. Use of asceptic technique. Opsite placed over site. Blood return noted. Blood for lab drawn from site. Flushed with 10 cc of normal saline. No evidence of infiltration noted. Patient tolerated well.
--- NOTE | 2018-07-26 23:39 | NUR ---
ER Dr. Kelley at bedside examining patient.
[2018-07-26] MEDS ORDERED: NACL 0.9% 1,000 ML IV ONE (23:44)
[2018-07-26] MEDS ORDERED: KETOROLAC TROMETHAMINE 30 MG VIAL IVP ONE (23:45)
[2018-07-26 23:46] LABS: BASOPHILS # (AUTO) 0.1 K/uL (0.0-0.2); BASOPHILS % (AUTO) 0.6 % (0.0-2.0); EOSINOPHILS # (AUTO) 0.1 K/uL (0.0-0.4); EOSINOPHILS % (AUTO) 1.3 % (0.0-4.0); HEMATOCRIT 38.2 % (36-48); LYMPHOCYTES # (AUTO) 3.6 K/uL (1.0-5.5); LYMPHOCYTES % (AUTO) 38.9 % (20.5-51.5); MEAN CORPUSCULAR HEMOGLOBIN 32 pg (27-31); MEAN CORPUSCULAR HGB CONC 34 % (32-36); MEAN CORPUSCULAR VOLUME 93 fL (79.0-98.0); MONOCYTES # (AUTO) 1.3 K/uL (0.0-1.0); MONOCYTES % (AUTO) 14.2 % (1.7-9.3); NEUTROPHILS # (AUTO) 4.1 K/uL (1.8-7.7); PLATELET COUNT (AUTO) 380 K/uL (130-430); RED BLOOD CELL COUNT(AUTO) 4.11 MIL/uL (4.2-6.2); RED CELL DISTRIBUTION WIDTH 13.3 % (9.0-15.0); WHITE BLOOD COUNT (AUTO) 9.2 K/uL (4.8-10.8)
--- NOTE | 2018-07-27 00:03 | NUR ---
Patient transported to radiology via gurney, accompanied by rad staff.
[2018-07-27 00:08] LABS: ALANINE AMINOTRANSFERASE 36 U/L (12-78); ALBUMIN 3.2 g/dL (3.4-4.8); ANION GAP 11 (5-15); ASPARTATE AMINOTRANSFERASE 14 U/L (10-37); CALCIUM 8.9 mg/dL (8.4-11.0); CHLORIDE 108 mmol/L (98-107); CREATININE 0.86 mg/dL (0.55-1.30); GLUCOSE 92 mg/dL (70-99); POTASSIUM 3.7 mmol/L (3.5-5.1); SODIUM SERUM 142 mmol/L (136-145); TOTAL BILIRUBIN 0.2 mg/dL (0.0-1.0); UREA NITROGEN, BLOOD 19 mg/dL (8-21)
[2018-07-27 00:11] LABS: GFR AFRICAN AMERICAN 91 mL/min (>90)
--- NOTE | 2018-07-27 00:12 | NUR ---
Pt returned in stable condition
[2018-07-27] MEDS ORDERED: DIPHENHYDRAMINE INJ 50 MG/ML VIAL IVP ONE (01:15)
[2018-07-27] MEDS ORDERED: fentaNYL CITRATE/PF 100 MCG/2 ML AMP IVP ONE (01:15)
--- NOTE | 2018-07-27 01:20 | NUR ---
Pt states pain is still 9/[address] Kelley notified and orders recieved. Will continue to monitor.
[2018-07-27] MEDS ORDERED: MAG-AL HYDROX/SIMETH 30 ML UDC PO ONE (01:30)
[2018-07-27] MEDS ORDERED: PANTOPRAZOLE SODIUM 40 MG/VIAL (PROTONIX) IVP ONE (01:30)
--- NOTE | 2018-07-27 02:00 | NUR ---
Pt states megan chest and abd pain has improved after medication administration. MD has printed out discharge paperwork and family has been notified for transportation
[2018-07-27 02:27] VITALS: BP_SYST 149
== END 2018-07-27 02:27 | disposition home or self-care (01) ==
LOC: SED 21:00
DX: R07.89 Other chest pain (principal); R10.9 Unspecified abdominal pain; I10 Essential (primary) hypertension; J45.909 Unspecified asthma, uncomplicated; E78.00 Pure hypercholesterolemia, unspecified; Z87.442 Personal history of urinary calculi; Z98.51 Tubal ligation status; Z79.899 Other long term (current) drug therapy
CPT/HCPCS: 36415; 74176; 80053; 81003; 81025; 84484; 85025; 93005; 96374; 96375; 99284; C9113; J1200; J1885; J3010; J7030

== ENCOUNTER 2018-08-08 10:28 | Emergency (ER) | payer MEDICAID ==
[~2018-08-08] VITALS: Ht 160 cm; Wt 77.1 kg
[2018-08-08] MEDS ORDERED: MORPHINE 4 MG/ML INJ. SYRINGE IM ONE (10:30)
[2018-08-08] MEDS ORDERED: NS 1000 ML IV.SOLN IV ONE (10:30)
[2018-08-08] MEDS ORDERED: NACL 0.9% 1,000 ML IV ONE (10:30)
--- NOTE | 2018-08-08 10:30 | NUR ---
Arrived via BLS ambulance with compliant of bilat flank pain since this morning. Patient to ER bed 3 to gown for evaluation. Side rails up. Report given to Marie GARCIA.
[2018-08-08 10:45] VITALS: BP_SYST 161
[2018-08-08 11:02] LABS: BASOPHILS # (AUTO) 0.1 K/uL (0.0-0.2); BASOPHILS % (AUTO) 0.8 % (0.0-2.0); EOSINOPHILS # (AUTO) 0.1 K/uL (0.0-0.4); EOSINOPHILS % (AUTO) 1.9 % (0.0-4.0); HEMATOCRIT 37.9 % (36-48); HEMOGLOBIN 12.9 g/dL (12.0-16.0); LYMPHOCYTES # (AUTO) 2.5 K/uL (1.0-5.5); LYMPHOCYTES % (AUTO) 36.2 % (20.5-51.5); MEAN CORPUSCULAR HEMOGLOBIN 32 pg (27-31); MEAN CORPUSCULAR HGB CONC 34 % (32-36); MEAN CORPUSCULAR VOLUME 93 fL (79.0-98.0); MONOCYTES # (AUTO) 0.7 K/uL (0.0-1.0); MONOCYTES % (AUTO) 10.6 % (1.7-9.3); NEUTROPHILS # (AUTO) 3.5 K/uL (1.8-7.7); NEUTROPHILS % (AUTO) 50.5 % (40.0-70.0); PLATELET COUNT (AUTO) 409 K/uL (130-430); RED BLOOD CELL COUNT(AUTO) 4.09 MIL/uL (4.2-6.2); WHITE BLOOD COUNT (AUTO) 6.9 K/uL (4.8-10.8)
[2018-08-08 11:07] LABS: ANION GAP 7 (5-15); CHLORIDE 106 mmol/L (98-107); CREATININE 0.92 mg/dL (0.55-1.30); GLUCOSE 96 mg/dL (70-99); POTASSIUM 3.5 mmol/L (3.5-5.1); SODIUM SERUM 136 mmol/L (136-145); UREA NITROGEN, BLOOD 16 mg/dL (8-21)
[2018-08-08 11:09] LABS: GFR AFRICAN AMERICAN 85 mL/min (>90)
[2018-08-08 11:11] LABS: ALANINE AMINOTRANSFERASE 34 U/L (12-78); ALBUMIN 3.3 g/dL (3.4-4.8); AMYLASE 53 U/L (0-100); ASPARTATE AMINOTRANSFERASE 19 U/L (10-37); LIPASE 139 U/L (73-393); TOTAL BILIRUBIN 0.2 mg/dL (0.0-1.0)
[2018-08-08 11:12] LABS: INR 0.9 (0.8-1.2); PROTHROMBIN TIME 9.4 SECS (9.5-12.5)
[2018-08-08 11:14] LABS: ALCOHOL, BLOOD < 3 mg/dL (<10)
--- NOTE | 2018-08-08 11:15 | NUR ---
Patient presented to ER with bilat flank pain. Patient A&Ox4, afebrile, skin pink, cap refill brisk, pain 10/10, nausea present, denies V/D. Patient states bilat flank pain started yesterday but became severe today prompting ER visit. Patien states she has a hx of urosepsis.
[2018-08-08 11:28] LABS: BILIRUBIN,URINE NEGATIVE (NEGATIVE); BLOOD, URINE 2+ (NEGATIVE); CLARITY/URINE CLEAR (CLEAR); COLOR,URINE YELLOW (YELLOW); GLUCOSE,URINE NEGATIVE (NEGATIVE); KETONES,URINE NEGATIVE (NEGATIVE); LEUKOCYTE ESTERASE ,URINE NEGATIVE (NEGATIVE); NITRITE, URINE NEGATIVE (NEGATIVE); PROTEIN URINE NEGATIVE (NEGATIVE); UROBILINOGEN,URINE 0.2 (0.2-1.0)
[2018-08-08] MEDS ORDERED: MORPHINE 4 MG/ML INJ. SYRINGE IVP ONE ×2 (11:30→13:15)
--- NOTE | 2018-08-08 11:32 | NUR ---
Patient to CT with radiology staff via [facility].
[2018-08-08 11:35] LABS: BACTERIA,URINE FEW /HPF (None Seen); WBC,URINE 0-3 /HPF (0-3)
[2018-08-08 11:39] LABS: BARBITURATE, URINE NEGATIVE (NEG <=200); BENZODIAZEPINE, URINE NEGATIVE (NEG <=150); CANNABINOID, URINE NEGATIVE (NEG <=50); COCAINE, URINE NEGATIVE (NEG <=150); METHAMPHETAMINES SCREEN,URINE NEGATIVE (NEG <=500); OPIATE, URINE NEGATIVE (NEG <=100); PHENCYCLIDINE SCREEN,URINE NEGATIVE (NEG <=25); UR TRICYCLIC ANTIDEPRESSANTS NEGATIVE (NEG <=300); URINE AMPHETAMINE NEGATIVE (NEG <=500); URINE METHADONE NEGATIVE (NEG <=200); URINE OXYCODONE SCREEN POSITIVE (NEG <=100); URINE PROPOXYPHENE SCREEN NEGATIVE (NEG <=300)
[2018-08-08] MEDS ORDERED: PERC10 PO (11:46)
[2018-08-08] MEDS ORDERED: LISI-600 PO (11:57)
[2018-08-08] MEDS ORDERED: ONDANSETRON HCL 4 MG/2 ML VIAL IVP ONE (12:45)
[2018-08-08 13:40] VITALS: BP_SYST 161
--- NOTE | 2018-08-08 13:40 | NUR ---
Patient given written and verbal discharge instructions and verbalizes understanding. ER MD discussed with patient the results and treatment provided. Patient in stable condition. ID arm band removed. IV catheter removed intact and dressing applied, no active bleeding. Rx of Tramadol, Flomax, Zofran given. Patient educated on pain management and to follow up with PMD. Pain Scale 5/10. Opportunity for questions provided and answered. Medication side effect fact sheet provided.
== END 2018-08-08 13:40 | disposition home or self-care (01) ==
LOC: SED 10:28
DX: R10.9 Unspecified abdominal pain (principal); I10 Essential (primary) hypertension; J45.909 Unspecified asthma, uncomplicated; E78.00 Pure hypercholesterolemia, unspecified; Z87.442 Personal history of urinary calculi; Z72.89 Other problems related to lifestyle; Z98.51 Tubal ligation status; Z79.899 Other long term (current) drug therapy
CPT/HCPCS: 36415; 71045; 74176; 80053; 80307; 81000; 82150; 82550; 83605; 83690; 85025; 85610; 85730; 87040; 96361; 96374; 96375; 96376; 99284; G0482; J2270; J2405; J7030

== ENCOUNTER 2018-08-17 20:08 | Emergency (ER) | payer MEDICAID ==
[~2018-08-17] VITALS: Ht 162.6 cm; Wt 90.7 kg
[~2018-08-17 20:08] MED LIST changes: -DIF100 PO; +LISI-600 PO; -LISI2.5T48 PO; -ONDA4TAB5 PO; +PERC10 PO; -TAMS-11 PO; -TRAM50TA2 PO
--- NOTE | 2018-08-17 20:10 | NUR ---
Patient to ER bed 05 to gown for evaluation. Side rails up. Report given to JOSE Rawls.
[2018-08-17 20:11] VITALS: BP_SYST 176
[2018-08-17] MEDS ORDERED: NACL 0.9% 1,000 ML IV ONE ×2 (20:13→22:15)
--- NOTE | 2018-08-17 20:14 | NUR ---
Dr. Perdomo bedside for Pt eval
[2018-08-17] MEDS ORDERED: ASPIRIN 81 MG TAB.CHEW PO ONE (20:15)
[2018-08-17] MEDS ORDERED: MORPHINE 4 MG/ML INJ. SYRINGE IVP ONE ×3 (20:15→22:45)
--- NOTE | 2018-08-17 20:15 | NUR ---
Pt BIBA to ED C/O sudden onset, left-sided, chest pain radiating to the back and throat swelling today. Rates symptoms as 8/10 in intensity. No modifying factors. Patient claims she was evaluated at [place] ED yesterday for similar symptoms where she was reportedly diagnosed with "fluid around the heart" and discharged home with a prescription for Prednisolone. States she took 2 tablets of Prednisolone along with Oxycodone prior to onset of symptoms. Claims she was instructed by physician from [place] to take Prednisolone and Oxycodone simultaneously. No other injuries and or complaints noted. VSS no s/s of acute distress. Resting on gurney with rails up
--- NOTE | 2018-08-17 20:40 | NUR ---
Portable X Ray bedside well tolerated
[2018-08-17 20:59] LABS: BASOPHILS # (AUTO) 0.1 K/uL (0.0-0.2); BASOPHILS % (AUTO) 0.6 % (0.0-2.0); EOSINOPHILS % (AUTO) 0.2 % (0.0-4.0); HEMATOCRIT 41.8 % (36-48); HEMOGLOBIN 14.1 g/dL (12.0-16.0); LYMPHOCYTES # (AUTO) 1.5 K/uL (1.0-5.5); LYMPHOCYTES % (AUTO) 13.8 % (20.5-51.5); MEAN CORPUSCULAR HEMOGLOBIN 32 pg (27-31); MEAN CORPUSCULAR HGB CONC 34 % (32-36); MEAN CORPUSCULAR VOLUME 94 fL (79.0-98.0); MONOCYTES # (AUTO) 0.3 K/uL (0.0-1.0); MONOCYTES % (AUTO) 3.1 % (1.7-9.3); NEUTROPHILS # (AUTO) 8.6 K/uL (1.8-7.7); NEUTROPHILS % (AUTO) 82.3 % (40.0-70.0); PLATELET COUNT (AUTO) 404 K/uL (130-430); RED BLOOD CELL COUNT(AUTO) 4.47 MIL/uL (4.2-6.2); RED CELL DISTRIBUTION WIDTH 13.3 % (9.0-15.0); WHITE BLOOD COUNT (AUTO) 10.5 K/uL (4.8-10.8)
[2018-08-17 21:14] LABS: INR 0.9 (0.8-1.2); PROTHROMBIN TIME 9.3 SECS (9.5-12.5)
[2018-08-17 21:14] LABS: BILIRUBIN,URINE NEGATIVE (NEGATIVE); BLOOD, URINE NEGATIVE (NEGATIVE); CLARITY/URINE CLEAR (CLEAR); COLOR,URINE YELLOW (YELLOW); GLUCOSE,URINE NEGATIVE (NEGATIVE); KETONES,URINE NEGATIVE (NEGATIVE); LEUKOCYTE ESTERASE ,URINE NEGATIVE (NEGATIVE); NITRITE, URINE NEGATIVE (NEGATIVE); PROTEIN URINE NEGATIVE (NEGATIVE); UROBILINOGEN,URINE 0.2 (0.2-1.0)
[2018-08-17 21:17] LABS: CALCIUM 9.9 mg/dL (8.4-11.0); CREATININE 0.92 mg/dL (0.55-1.30); POTASSIUM 4.4 mmol/L (3.5-5.1)
[2018-08-17 21:22] LABS: ALBUMIN 3.7 g/dL (3.4-4.8); TOTAL BILIRUBIN 0.3 mg/dL (0.0-1.0)
--- NOTE | 2018-08-17 21:30 | NUR ---
VSS no s/s of acute distress. Resting on gurney with rails up
--- NOTE | 2018-08-17 22:30 | NUR ---
IV Antibiotics and Fluids well tolerated
[2018-08-17 23:25] VITALS: BP_SYST 141
--- NOTE | 2018-08-17 23:25 | NUR ---
Patient given written and verbal discharge instructions and verbalizes understanding. ER MD discussed with patient the results and treatment provided. Patient in stable condition. ID arm band removed. IV catheter removed intact and dressing applied, no active bleeding. Rx of Benadryl, Tylenol with codeine #3, and Zofran given. Patient educated on pain management and to follow up with PMD. Pain Scale 0/10. Opportunity for questions provided and answered. Medication side effect fact sheet provided.
== END 2018-08-17 23:25 | disposition home or self-care (01) ==
LOC: SED 20:08
DX: F41.9 Anxiety disorder, unspecified (principal); R07.89 Other chest pain; G89.29 Other chronic pain; J45.909 Unspecified asthma, uncomplicated; I10 Essential (primary) hypertension; E78.00 Pure hypercholesterolemia, unspecified; Z87.442 Personal history of urinary calculi; Z79.899 Other long term (current) drug therapy
CPT/HCPCS: 36415; 71045; 80053; 81003; 82150; 82550; 83605; 83690; 83880; 84484; 85025; 85610; 85730; 87040; 93005; 96361; 96374; 96376; 99284; J2270; J7030

== ENCOUNTER 2018-10-03 10:04 | Emergency (ER) | payer MEDICAID ==
[~2018-10-03] VITALS: Ht 154.9 cm; Wt 77.1 kg
[2018-10-03 10:08] VITALS: BP_SYST 169
--- NOTE | 2018-10-03 10:08 | NUR ---
Patient is awake, alert, and oriented x4. Patient was brought by ambulance from home complaining of bloody stool, abdominal pain, nausea, vomiting, subjective fever x2 days. Patient reports that blood is bright red.
--- NOTE | 2018-10-03 10:15 | NUR ---
ER at bedside examining patient.
[2018-10-03] MEDS ORDERED: NACL 0.9% 1,000 ML IV ONE (10:16)
--- NOTE | 2018-10-03 10:43 | NUR ---
Patient transported to radiology via gurney, accompanied by plumbing technician.
--- NOTE | 2018-10-03 10:49 | NUR ---
Returned from radiology, back to [facility].
[2018-10-03 10:52] LABS: BILIRUBIN,URINE NEGATIVE (NEGATIVE); BLOOD, URINE 3+ (NEGATIVE); CLARITY/URINE CLEAR (CLEAR); COLOR,URINE YELLOW (YELLOW); GLUCOSE,URINE NEGATIVE (NEGATIVE); KETONES,URINE NEGATIVE (NEGATIVE); LEUKOCYTE ESTERASE ,URINE TRACE (NEGATIVE); NITRITE, URINE NEGATIVE (NEGATIVE); PROTEIN URINE NEGATIVE (NEGATIVE); UROBILINOGEN,URINE 0.2 (0.2-1.0)
[2018-10-03 10:58] LABS: BACTERIA,URINE FEW /HPF (None Seen); RBC,URINE 20-50 /HPF (0-3)
[2018-10-03 11:14] LABS: BASOPHILS % (AUTO) 0.7 % (0.0-2.0); EOSINOPHILS # (AUTO) 0.1 K/uL (0.0-0.4); EOSINOPHILS % (AUTO) 1.1 % (0.0-4.0); HEMATOCRIT 36.8 % (36-48); HEMOGLOBIN 12.7 g/dL (12.0-16.0); LYMPHOCYTES # (AUTO) 2.3 K/uL (1.0-5.5); LYMPHOCYTES % (AUTO) 35.9 % (20.5-51.5); MEAN CORPUSCULAR HEMOGLOBIN 32 pg (27-31); MEAN CORPUSCULAR HGB CONC 35 % (32-36); MEAN CORPUSCULAR VOLUME 92 fL (79.0-98.0); MONOCYTES # (AUTO) 0.7 K/uL (0.0-1.0); MONOCYTES % (AUTO) 10.5 % (1.7-9.3); NEUTROPHILS # (AUTO) 3.3 K/uL (1.8-7.7); NEUTROPHILS % (AUTO) 51.8 % (40.0-70.0); PLATELET COUNT (AUTO) 390 K/uL (130-430); RED BLOOD CELL COUNT(AUTO) 3.99 MIL/uL (4.2-6.2); RED CELL DISTRIBUTION WIDTH 12.8 % (9.0-15.0); WHITE BLOOD COUNT (AUTO) 6.3 K/uL (4.8-10.8)
[2018-10-03 11:17] LABS: CALCIUM 8.8 mg/dL (8.4-11.0); CREATININE 0.89 mg/dL (0.55-1.30); POTASSIUM 3.7 mmol/L (3.5-5.1)
[2018-10-03 11:23] LABS: ALBUMIN 3.2 g/dL (3.4-4.8); TOTAL BILIRUBIN 0.3 mg/dL (0.0-1.0)
[2018-10-03] MEDS ORDERED: ONDANSETRON HCL 4 MG/2 ML VIAL IVP ONE (12:00)
[2018-10-03] MEDS ORDERED: MORPHINE 4 MG/ML INJ. SYRINGE IVP ONE (12:00)
[2018-10-03 13:10] VITALS: BP_SYST 152
--- NOTE | 2018-10-03 13:10 | NUR ---
Patient given written and verbal discharge instructions and verbalizes understanding. ER MD discussed with patient the results and treatment provided. Patient in stable condition. ID arm band removed. IV catheter removed intact and dressing applied, no active bleeding. Rx of flagyl given. Patient educated on pain management and to follow up with PMD. Pain Scale 0/10. Opportunity for questions provided and answered. Medication side effect fact sheet provided.
== END 2018-10-03 13:10 | disposition home or self-care (01) ==
LOC: SED 10:04
DX: K62.5 Hemorrhage of anus and rectum (principal); R11.10 Vomiting, unspecified; K58.9 Irritable bowel syndrome, unspecified; Z87.442 Personal history of urinary calculi
CPT/HCPCS: 36415; 74176; 80053; 81000; 81025; 82272; 83690; 85025; 96361; 96374; 96375; 99284; J2270; J2405; J7030

== ENCOUNTER 2018-10-16 12:05 | Emergency (ER) | payer MEDICAID ==
[~2018-10-16] VITALS: Ht 154.9 cm; Wt 77.1 kg
[2018-10-16 12:20] VITALS: BP_SYST 148
[2018-10-16 13:59] LABS: BILIRUBIN,URINE NEGATIVE (NEGATIVE); CLARITY/URINE SL HAZY (CLEAR); COLOR,URINE YELLOW (YELLOW); GLUCOSE,URINE NEGATIVE (NEGATIVE); KETONES,URINE NEGATIVE (NEGATIVE); LEUKOCYTE ESTERASE ,URINE 2+ (NEGATIVE); NITRITE, URINE NEGATIVE (NEGATIVE); PROTEIN URINE NEGATIVE (NEGATIVE); UROBILINOGEN,URINE 0.2 (0.2-1.0)
[2018-10-16 14:03] LABS: BLOOD, URINE TRACE (NEGATIVE)
[2018-10-16 14:07] LABS: BACTERIA,URINE FEW /HPF (None Seen); WBC,URINE 50-80 /HPF (0-3)
[2018-10-16] MEDS ORDERED: MORPHINE 2 MG/ML INJ. SYRINGE IM ONE (14:45)
[2018-10-16] MEDS ORDERED: cefTRIAXone 1 GM VIAL IM ONE (14:45)
[2018-10-16 14:56] VITALS: BP_SYST 132
== END 2018-10-16 14:56 | disposition home or self-care (01) ==
LOC: SED 12:05
DX: N12 Tubulo-interstitial nephritis, not specified as acute or chronic (principal); I10 Essential (primary) hypertension; J45.909 Unspecified asthma, uncomplicated; E78.00 Pure hypercholesterolemia, unspecified; Z79.899 Other long term (current) drug therapy; Z90.49 Acquired absence of other specified parts of digestive tract
CPT/HCPCS: 81000; 81025; 87086; 87186; 96372; 99283; J0696; J2270

== ENCOUNTER 2018-11-11 09:37 | Emergency (ER) | payer MEDICAID ==
[~2018-11-11] VITALS: Ht 154.9 cm; Wt 77.1 kg
[2018-11-11 09:47] VITALS: BP_SYST 160
--- NOTE | 2018-11-11 09:52 | NUR ---
Patient to ER bed 7 to gown for evaluation. Side rails up. Report given to Cathy GARCIA.
[2018-11-11] MEDS ORDERED: NACL 0.9% 1,000 ML IV ONE (10:00)
[2018-11-11] MEDS ORDERED: KETOROLAC TROMETHAMINE 30 MG VIAL IVP ONE (10:00)
[2018-11-11] MEDS ORDERED: ONDANSETRON HCL 4 MG/2 ML VIAL IVP ONE (10:00)
--- NOTE | 2018-11-11 10:01 | NUR ---
pt arrives from home w/ c/o N/V x 2 days. Diarrhea since this am. PT reported getting the flu shot this Sat. Pt has been on antibiotics for one month.
--- NOTE | 2018-11-11 10:02 | NUR ---
ER at bedside examining patient.
--- NOTE | 2018-11-11 10:15 | NUR ---
medicated the pt with Toradol, will reassess.
--- NOTE | 2018-11-11 10:20 | NUR ---
# 20 gauge angiocath placed to right hand. Use of asceptic technique. Opsite placed over site. Blood return noted. Blood for lab drawn from site. Flushed with 10 cc of normal saline. No evidence of infiltration noted. Patient tolerated well.
[2018-11-11 10:49] LABS: BASOPHILS % (AUTO) 0.4 % (0.0-2.0); EOSINOPHILS % (AUTO) 0.5 % (0.0-4.0); HEMATOCRIT 40.1 % (36-48); HEMOGLOBIN 13.9 g/dL (12.0-16.0); LYMPHOCYTES # (AUTO) 1.1 K/uL (1.0-5.5); LYMPHOCYTES % (AUTO) 12.5 % (20.5-51.5); MEAN CORPUSCULAR HEMOGLOBIN 32 pg (27-31); MEAN CORPUSCULAR HGB CONC 35 % (32-36); MEAN CORPUSCULAR VOLUME 92 fL (79.0-98.0); MONOCYTES # (AUTO) 0.7 K/uL (0.0-1.0); MONOCYTES % (AUTO) 8.2 % (1.7-9.3); NEUTROPHILS # (AUTO) 7.1 K/uL (1.8-7.7); NEUTROPHILS % (AUTO) 78.4 % (40.0-70.0); PLATELET COUNT (AUTO) 396 K/uL (130-430); RED BLOOD CELL COUNT(AUTO) 4.37 MIL/uL (4.2-6.2); RED CELL DISTRIBUTION WIDTH 13.1 % (9.0-15.0)
[2018-11-11 10:57] LABS: CALCIUM 8.6 mg/dL (8.4-11.0); CREATININE 0.77 mg/dL (0.55-1.30); POTASSIUM 3.8 mmol/L (3.5-5.1)
[2018-11-11] MEDS ORDERED: MORPHINE 4 MG/ML INJ. SYRINGE IVP ONE ×2 (11:00→12:30)
--- NOTE | 2018-11-11 11:00 | NUR ---
medicated the pt with Morphine 4mg will reassess.
[2018-11-11 11:03] LABS: ALBUMIN 3.5 g/dL (3.4-4.8); TOTAL BILIRUBIN 0.7 mg/dL (0.0-1.0)
[2018-11-11] MEDS ORDERED: LEVOFLOXACIN 500 MG/D5W 100 ML IV ONE (11:15)
[2018-11-11 12:45] VITALS: BP_SYST 142
--- NOTE | 2018-11-11 12:45 | NUR ---
Patient given written and verbal discharge instructions and verbalizes understanding. ER MD discussed with patient the results and treatment provided. Patient in stable condition. ID arm band removed. IV catheter removed intact and dressing applied, no active bleeding. Rx of Ciprofloxicin given. Patient educated on pain management and to follow up with PMD. Pain Scale 3/10.Opportunity for questions provided and answered. Medication side effect fact sheet provided.
== END 2018-11-11 12:45 | disposition home or self-care (01) ==
LOC: SED 09:37
DX: K52.9 Noninfective gastroenteritis and colitis, unspecified (principal); F11.90 Opioid use, unspecified, uncomplicated; J45.909 Unspecified asthma, uncomplicated; I12.9 Hypertensive chronic kidney disease with stage 1 through stage 4 chronic kidney disease, or unspecified chronic kidney disease; N18.9 Chronic kidney disease, unspecified; E78.00 Pure hypercholesterolemia, unspecified; Z87.442 Personal history of urinary calculi; Z90.49 Acquired absence of other specified parts of digestive tract; Z79.899 Other long term (current) drug therapy
CPT/HCPCS: 36415; 74176; 80053; 83690; 85025; 96365; 96375; 96376; 99284; J1885; J1956; J2270; J2405; J7030

== ENCOUNTER 2018-12-26 20:03 | Emergency (ER) | payer MEDICAID ==
[~2018-12-26] VITALS: Ht 154.9 cm; Wt 77.1 kg
[2018-12-26 20:05] VITALS: BP_SYST 178
[2018-12-26 20:47] LABS: BASOPHILS # (AUTO) 0.1 K/uL (0.0-0.2); EOSINOPHILS # (AUTO) 0.1 K/uL (0.0-0.4); HEMATOCRIT 39.6 % (36-48); HEMOGLOBIN 13.6 g/dL (12.0-16.0); LYMPHOCYTES # (AUTO) 2.6 K/uL (1.0-5.5); LYMPHOCYTES % (AUTO) 29.7 % (20.5-51.5); MEAN CORPUSCULAR HEMOGLOBIN 32 pg (27-31); MEAN CORPUSCULAR HGB CONC 34 % (32-36); MEAN CORPUSCULAR VOLUME 93 fL (79.0-98.0); MONOCYTES # (AUTO) 0.7 K/uL (0.0-1.0); MONOCYTES % (AUTO) 7.6 % (1.7-9.3); NEUTROPHILS # (AUTO) 5.3 K/uL (1.8-7.7); NEUTROPHILS % (AUTO) 60.7 % (40.0-70.0); PLATELET COUNT (AUTO) 417 K/uL (130-430); RED BLOOD CELL COUNT(AUTO) 4.28 MIL/uL (4.2-6.2); RED CELL DISTRIBUTION WIDTH 13.1 % (9.0-15.0); WHITE BLOOD COUNT (AUTO) 8.7 K/uL (4.8-10.8)
[2018-12-26 20:56] LABS: CALCIUM 8.6 mg/dL (8.4-11.0); CREATININE 0.8 mg/dL (0.55-1.30); POTASSIUM 4.1 mmol/L (3.5-5.1)
== END 2018-12-26 22:25 | disposition left against medical advice (07) ==
LOC: SED 20:03
DX: J11.1 Influenza due to unidentified influenza virus with other respiratory manifestations (principal); Z53.21 Procedure and treatment not carried out due to patient leaving prior to being seen by health care provider
CPT/HCPCS: 36415; 80048; 85025; 86710

== ENCOUNTER 2019-01-15 08:17 | Emergency (ER) | payer MEDICAID ==
[~2019-01-15] VITALS: Ht 154.9 cm; Wt 77.1 kg
[2019-01-15 08:22] VITALS: BP_SYST 157
--- NOTE | 2019-01-15 10:25 | NUR ---
Patient to ER bed H1 to gown for evaluation. Side rails up.
--- NOTE | 2019-01-15 10:30 | NUR ---
Dr Angulo at bedside examining patient
[2019-01-15] MEDS ORDERED: MORPHINE 4 MG/ML INJ. SYRINGE IM ONE (10:45)
--- NOTE | 2019-01-15 10:45 | NUR ---
Pt brought self to ER, AO4, c/o n/v/abd pain 8/10 LLQ. No other complaints at this time.
--- NOTE | 2019-01-15 11:42 | NUR ---
CALLED PT'S DAUGHTER JERRY TO ASK IF SHE CAN GRAPHIC ART SALES REPRESENTATIVE PT. ONE OF PT FAMILY MEMBERS WILL PICK HER UP IN 15-20 MINUTES.
--- NOTE | 2019-01-15 12:14 | NUR ---
Patient given written and verbal discharge instructions and verbalizes understanding. ER MD discussed with patient the results and treatment provided. Patient in stable condition. ID arm band removed. Rx of Zofran, Cipro and [place] given. Patient educated on pain management and to follow up with PMD. Pain Scale 2/10 tolerable for patient . Opportunity for questions provided and answered. Medication side effect fact sheet provided.
[2019-01-15 12:25] VITALS: BP_SYST 157
== END 2019-01-15 12:14 | disposition home or self-care (01) ==
LOC: SED 08:17
DX: N39.0 Urinary tract infection, site not specified (principal); R10.32 Left lower quadrant pain; J45.909 Unspecified asthma, uncomplicated; E78.00 Pure hypercholesterolemia, unspecified; I10 Essential (primary) hypertension; K58.9 Irritable bowel syndrome, unspecified; N28.9 Disorder of kidney and ureter, unspecified; Z79.899 Other long term (current) drug therapy; Z87.442 Personal history of urinary calculi; Z90.49 Acquired absence of other specified parts of digestive tract
CPT/HCPCS: 81002; 81025; 96372; 99283

== ENCOUNTER 2019-04-07 09:43 | Emergency (ER) | payer MEDICAID ==
[~2019-04-07] VITALS: Ht 154.9 cm; Wt 79.4 kg
[2019-04-07 09:43] VITALS: BP_SYST 136
[2019-04-07] MEDS ORDERED: NACL 0.9% 1,000 ML IV ONE (10:15)
[2019-04-07] MEDS ORDERED: ONDANSETRON HCL 4 MG/2 ML VIAL IVP ONE (10:15)
[2019-04-07] MEDS ORDERED: MORPHINE 2 MG/ML INJ. SYRINGE IVP ONE (10:15)
[2019-04-07] MEDS ORDERED: PANTOPRAZOLE SODIUM 40 MG/VIAL (PROTONIX) IVP ONE (10:15)
[2019-04-07 10:51] LABS: BASOPHILS # (AUTO) 0.1 K/uL (0.0-0.2); BASOPHILS % (AUTO) 1.4 % (0.0-2.0); EOSINOPHILS # (AUTO) 0.1 K/uL (0.0-0.4); HEMATOCRIT 37.7 % (36-48); HEMOGLOBIN 12.4 g/dL (12.0-16.0); LYMPHOCYTES # (AUTO) 2.3 K/uL (1.0-5.5); LYMPHOCYTES % (AUTO) 25.4 % (20.5-51.5); MEAN CORPUSCULAR HEMOGLOBIN 31 pg (27-31); MEAN CORPUSCULAR HGB CONC 33 % (32-36); MEAN CORPUSCULAR VOLUME 93 fL (79.0-98.0); MONOCYTES # (AUTO) 0.8 K/uL (0.0-1.0); MONOCYTES % (AUTO) 8.8 % (1.7-9.3); NEUTROPHILS # (AUTO) 5.7 K/uL (1.8-7.7); NEUTROPHILS % (AUTO) 63.4 % (40.0-70.0); PLATELET COUNT (AUTO) 408 K/uL (130-430); RED BLOOD CELL COUNT(AUTO) 4.05 MIL/uL (4.2-6.2); RED CELL DISTRIBUTION WIDTH 14.1 % (9.0-15.0); WHITE BLOOD COUNT (AUTO) 8.9 K/uL (4.8-10.8)
[2019-04-07 10:59] LABS: CALCIUM 8.4 mg/dL (8.4-11.0); CREATININE 0.8 mg/dL (0.55-1.30); POTASSIUM 3.9 mmol/L (3.5-5.1)
[2019-04-07 11:11] LABS: ALBUMIN 2.9 g/dL (3.4-4.8); TOTAL BILIRUBIN 0.4 mg/dL (0.0-1.0)
[2019-04-07 11:51] LABS: BILIRUBIN,URINE NEGATIVE (NEGATIVE); BLOOD, URINE NEGATIVE (NEGATIVE); CLARITY/URINE CLEAR (CLEAR); COLOR,URINE YELLOW (YELLOW); GLUCOSE,URINE NEGATIVE (NEGATIVE); KETONES,URINE NEGATIVE (NEGATIVE); LEUKOCYTE ESTERASE ,URINE 1+ (NEGATIVE); NITRITE, URINE NEGATIVE (NEGATIVE); PH,URINE 6.5 (5.0-8.0); PROTEIN URINE NEGATIVE (NEGATIVE); UROBILINOGEN,URINE 0.2 (0.2-1.0)
[2019-04-07] MEDS ORDERED: fentaNYL CITRATE/PF 100 MCG/2 ML AMP IVP ONE (12:00)
[2019-04-07 12:07] LABS: RBC,URINE 0-3 /HPF (0-3)
[2019-04-07 12:08] LABS: BACTERIA,URINE MODERATE /HPF (None Seen)
[2019-04-07 13:20] VITALS: BP_SYST 136
== END 2019-04-07 13:20 | disposition home or self-care (01) ==
LOC: SED 09:43
DX: R10.2 Pelvic and perineal pain (principal); J45.909 Unspecified asthma, uncomplicated; R11.2 Nausea with vomiting, unspecified; N28.9 Disorder of kidney and ureter, unspecified; E78.00 Pure hypercholesterolemia, unspecified; Z87.442 Personal history of urinary calculi; Z90.49 Acquired absence of other specified parts of digestive tract; Z79.899 Other long term (current) drug therapy
CPT/HCPCS: 36415; 74176; 80053; 81000; 83690; 84702; 85025; 87086; 96361; 96374; 96375; 99284; C9113; J2270; J2405; J3010; J7030

== ENCOUNTER 2019-06-06 20:07 | Emergency (ER) | payer MEDICAID ==
[~2019-06-06] VITALS: Ht 152.4 cm; Wt 80.7 kg
[2019-06-06 20:07] VITALS: BP_SYST 135
[2019-06-06] MEDS ORDERED: KETOROLAC TROMETHAMINE 30 MG VIAL IVP ONE (20:45)
[2019-06-06] MEDS ORDERED: MORPHINE 4 MG/ML INJ. SYRINGE IVP ONE (20:45)
[2019-06-06 20:52] LABS: BILIRUBIN,URINE NEGATIVE (NEGATIVE); BLOOD, URINE NEGATIVE (NEGATIVE); COLOR,URINE YELLOW (YELLOW); GLUCOSE,URINE NEGATIVE (NEGATIVE); KETONES,URINE NEGATIVE (NEGATIVE); LEUKOCYTE ESTERASE ,URINE NEGATIVE (NEGATIVE); NITRITE, URINE NEGATIVE (NEGATIVE); PROTEIN URINE NEGATIVE (NEGATIVE); UROBILINOGEN,URINE 0.2 (0.2-1.0)
[2019-06-06 20:55] LABS: CLARITY/URINE SLIGHTLY HAZY (CLEAR)
[2019-06-06] MEDS ORDERED: LACTULOSE 20 GM/30 ML UDC PO ONE (22:15)
[2019-06-06 22:30] VITALS: BP_SYST 131
== END 2019-06-06 22:30 | disposition home or self-care (01) ==
LOC: SED 20:07
DX: K59.00 Constipation, unspecified (principal); R10.84 Generalized abdominal pain; J45.909 Unspecified asthma, uncomplicated; I10 Essential (primary) hypertension; N28.9 Disorder of kidney and ureter, unspecified; E78.00 Pure hypercholesterolemia, unspecified; Z87.442 Personal history of urinary calculi; Z79.899 Other long term (current) drug therapy
CPT/HCPCS: 74176; 81003; 81025; 96374; 96375; 99284; J1885; J2270

== ENCOUNTER 2019-06-10 14:31 | Emergency (ER) | payer MEDICAID ==
[~2019-06-10] VITALS: Ht 152.4 cm; Wt 80.7 kg
[2019-06-10 14:38] VITALS: BP_SYST 142
[2019-06-10 15:20] VITALS: BP_SYST 141
== END 2019-06-10 15:20 | disposition home or self-care (01) ==
LOC: SED 14:31
DX: F11.90 Opioid use, unspecified, uncomplicated (principal); E78.00 Pure hypercholesterolemia, unspecified; J45.909 Unspecified asthma, uncomplicated; I10 Essential (primary) hypertension; N28.9 Disorder of kidney and ureter, unspecified; Z87.442 Personal history of urinary calculi; Z79.899 Other long term (current) drug therapy; Z76.5 Malingerer [conscious simulation]
CPT/HCPCS: 99281

== ENCOUNTER 2019-07-08 08:41 | Emergency (ER) | payer MEDICAID ==
[~2019-07-08] VITALS: Ht 157.5 cm; Wt 81.6 kg
[2019-07-08 08:41] VITALS: BP_SYST 164
--- NOTE | 2019-07-08 08:41 | NUR ---
BROUGHT IN BY [facility] AND PLACED IN BED #5, TRIAGED. REPORT GIVEN TO JENNIFER
--- NOTE | 2019-07-08 08:45 | NUR ---
Patient presented to ER C/O abdominal pain. Pt BIB BLS from home. Patient A&Ox4, skin pink and warm, pain 10/10, nausea present, denies V/D. 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 Patient states she takes percocet 10mg 4 rimes per day, lisinopril daily and xanax 2 times per day.
--- NOTE | 2019-07-08 08:50 | NUR ---
ER Dr. DENG at bedside examining patient.
--- NOTE | 2019-07-08 09:05 | NUR ---
PT TALKING LOUDLY THAT SHE WANTS NARCOTICS, DR DENG REQUESTING FOR BLOOD AND TO GIVE PT HYDRATION, PT STATES IF SHES NOT GETTING DRUGS, SHE WILL JUST LEAVE.
[2019-07-08] MEDS ORDERED: cloNIDine HCL 0.1 MG TABLET PO ONE (09:15)
[2019-07-08] MEDS ORDERED: MAGNESIUM CITRATE 300 ML ORAL SOLUTION PO ONE (09:15)
--- NOTE | 2019-07-08 09:15 | NUR ---
PATIENT MEDICATED WITH PO CATAPRES, PT REFUSED PO MAGNESIUM CITRATE, AND STATED "DOES HE WANT ME TO SHIT ALL OVER MYSELF".
--- NOTE | 2019-07-08 09:18 | NUR ---
Patient states she will not provide urine. Pt requesting "pain medicine".
--- NOTE | 2019-07-08 09:25 | NUR ---
Patient does not wish to proceed with medical care recommended by DR. DENG. Patient given information related to possible complications, up to and including , which could occur as a result of leaving hospital at this time. Patient verbalizes understanding of risks involved leaving against medical advice. Patient has signed AMA form.
== END 2019-07-08 09:25 | disposition left against medical advice (07) ==
LOC: SED 08:41
DX: K59.00 Constipation, unspecified (principal); R10.9 Unspecified abdominal pain; F11.90 Opioid use, unspecified, uncomplicated; E78.00 Pure hypercholesterolemia, unspecified; K58.9 Irritable bowel syndrome, unspecified; J45.909 Unspecified asthma, uncomplicated; I10 Essential (primary) hypertension; N28.9 Disorder of kidney and ureter, unspecified; Z90.49 Acquired absence of other specified parts of digestive tract; Z87.442 Personal history of urinary calculi; Z79.899 Other long term (current) drug therapy
CPT/HCPCS: 99283

== ENCOUNTER 2020-06-08 18:15 | Emergency (ER) | payer MEDICAID, SELFPAY ==
[~2020-06-08] VITALS: Ht 154.9 cm; Wt 82.1 kg
[~2020-06-08 18:15] MED LIST changes: +FERR236T3 PO; +KETO5DRO85 EACH EYE; -LISI-600 PO; +LISI20TA30 PO; +OMEP20CA16 PO; +ONDA-8 TL; -SULF1TAB3 PO; -SULF1TAB48 PO
[2020-06-08 18:27] VITALS: BP_SYST 147
[2020-06-08 19:04] LABS: BILIRUBIN,URINE NEGATIVE (NEGATIVE); CLARITY/URINE SL CLOUDY (CLEAR); COLOR,URINE YELLOW (YELLOW); GLUCOSE,URINE NEGATIVE (NEGATIVE); KETONES,URINE NEGATIVE (NEGATIVE); LEUKOCYTE ESTERASE ,URINE 1+ (NEGATIVE); NITRITE, URINE POSITIVE (NEGATIVE); PROTEIN URINE TRACE (NEGATIVE); UROBILINOGEN,URINE 0.2 (0.2-1.0)
[2020-06-08 19:06] LABS: BLOOD, URINE TRACE (NEGATIVE)
[2020-06-08 19:13] LABS: BACTERIA,URINE MODERATE /HPF (None Seen); RBC,URINE 0-3 /HPF (0-3); WBC,URINE 50-80 /HPF (0-3)
[2020-06-08] MEDS ORDERED: NACL 0.9% 1,000 ML IV ONE (19:15)
[2020-06-08] MEDS ORDERED: KETOROLAC TROMETHAMINE 30 MG VIAL IVP ONE (19:15)
[2020-06-08 19:16] LABS: MUCUS,URINE None Seen /LPF (None Seen)
[2020-06-08] MEDS ORDERED: MORPHINE 4 MG INJ. 4 MG/ML VIAL IVP ONE ×2 (19:30→20:15)
[2020-06-08] MEDS ORDERED: cefTRIAXone 1 GM IVPB PREMIX 50 ML IV ONE (19:45)
[2020-06-08] MEDS ORDERED: CIPR500T5 PO (20:27)
[2020-06-08 20:51] VITALS: BP_SYST 147
== END 2020-06-08 20:51 | disposition home or self-care (01) ==
LOC: SED 18:15
DX: N39.0 Urinary tract infection, site not specified (principal); N28.9 Disorder of kidney and ureter, unspecified; J45.909 Unspecified asthma, uncomplicated; E78.00 Pure hypercholesterolemia, unspecified; F11.90 Opioid use, unspecified, uncomplicated; Z90.49 Acquired absence of other specified parts of digestive tract; Z90.710 Acquired absence of both cervix and uterus; Z79.899 Other long term (current) drug therapy
CPT/HCPCS: 81000; 87086; 96365; 96375; 99284; J0696; J2270; J7030

== ENCOUNTER 2020-08-30 18:43 | Emergency (ER) | payer MEDICAID ==
[~2020-08-30] VITALS: Ht 152.4 cm; Wt 85.3 kg
[~2020-08-30 18:43] MED LIST changes: +CIPR500T5 PO
[2020-08-30 19:45] VITALS: BP_SYST 138
[2020-08-30 20:28] LABS: BASOPHILS # (AUTO) 0.2 K/uL (0.0-0.2); BASOPHILS % (AUTO) 1.5 % (0.0-2.0); EOSINOPHILS # (AUTO) 0.1 K/uL (0.0-0.4); HEMATOCRIT 38.2 % (36-48); HEMOGLOBIN 12.8 g/dL (12.0-16.0); LYMPHOCYTES # (AUTO) 3.5 K/uL (1.0-5.5); LYMPHOCYTES % (AUTO) 30.3 % (20.5-51.5); MEAN CORPUSCULAR HEMOGLOBIN 30 pg (27-31); MEAN CORPUSCULAR HGB CONC 33 % (32-36); MEAN CORPUSCULAR VOLUME 90 fL (79.0-98.0); MONOCYTES # (AUTO) 1.2 K/uL (0.0-1.0); MONOCYTES % (AUTO) 10.1 % (1.7-9.3); NEUTROPHILS # (AUTO) 6.6 K/uL (1.8-7.7); NEUTROPHILS % (AUTO) 57.1 % (40.0-70.0); PLATELET COUNT (AUTO) 356 K/uL (130-430); RED BLOOD CELL COUNT(AUTO) 4.26 MIL/uL (4.2-6.2); RED CELL DISTRIBUTION WIDTH 14.6 % (9.0-15.0); WHITE BLOOD COUNT (AUTO) 11.5 K/uL (4.8-10.8)
[2020-08-30 20:42] LABS: CALCIUM 8.8 mg/dL (8.4-11.0); CREATININE 1.13 mg/dL (0.55-1.30); POTASSIUM 4.1 mmol/L (3.5-5.1)
[2020-08-30 20:45] LABS: BILIRUBIN,URINE NEGATIVE (NEGATIVE); CLARITY/URINE CLEAR (CLEAR); COLOR,URINE YELLOW (YELLOW); GLUCOSE,URINE NEGATIVE (NEGATIVE); KETONES,URINE NEGATIVE (NEGATIVE); LEUKOCYTE ESTERASE ,URINE NEGATIVE (NEGATIVE); NITRITE, URINE NEGATIVE (NEGATIVE); PROTEIN URINE NEGATIVE (NEGATIVE); UROBILINOGEN,URINE 0.2 (0.2-1.0)
[2020-08-30 20:48] LABS: ALBUMIN 3.3 g/dL (3.4-4.8); TOTAL BILIRUBIN 0.2 mg/dL (0.0-1.0)
[2020-08-30 20:54] LABS: C-REACTIVE PROTEIN QUANT 0.9 mg/dL (0-0.5)
[2020-08-30 20:55] LABS: BLOOD, URINE TRACE (NEGATIVE)
[2020-08-30 21:16] LABS: INR 0.9 (0.8-1.2); PROTHROMBIN TIME 9.5 SECS (9.5-12.5)
[2020-08-30] MEDS ORDERED: HYDROcodone/ACETAMIN 10-325 MG TAB PO ONE (21:30)
[2020-08-30] MEDS ORDERED: IBUPROFEN 800 MG TABLET PO ONE (21:30)
[2020-08-30 21:47] LABS: BACTERIA,URINE RARE /HPF (None Seen); CALCIUM PHOSPHATE CRYSTALS,UR None Seen /HPF (None Seen); RBC,URINE 0-3 /HPF (0-3); TRICHOMONAS,URINE None Seen /HPF (None Seen); WBC,URINE 0-3 /HPF (0-3); YEAST,URINE None Seen /HPF (None Seen)
[2020-08-30 21:48] LABS: CALCIUM OXALATE CRYSTALS,UR None Seen /HPF (None Seen); COARSE GRANULAR CASTS,URINE None Seen /LPF (None Seen); FINE GRANULAR CASTS,URINE None Seen /LPF (None Seen); HYALINE CASTS, URINE None Seen /LPF (None Seen); MUCUS,URINE None Seen /LPF (None Seen); OTHER CASTS, URINE None Seen /LPF (None Seen); OTHER CRYSTALS,URINE None Seen /HPF (None Seen); TRIPLE PHOSPHATE CRYSTAL,UR None Seen /HPF (None Seen); URIC ACID CRYSTALS,URINE None Seen /HPF (None Seen); URINE AMORPHOUS PHOSPHATES None Seen /HPF (None Seen); URINE AMORPHOUS URATE None Seen /HPF (None Seen); WAXY CASTS,URINE None Seen /LPF (None Seen)
[2020-08-30 22:00] VITALS: BP_SYST 138
== END 2020-08-30 22:00 | disposition home or self-care (01) ==
LOC: SED 18:43
DX: R10.31 Right lower quadrant pain (principal); I10 Essential (primary) hypertension; E11.9 Type 2 diabetes mellitus without complications; J45.909 Unspecified asthma, uncomplicated; E78.00 Pure hypercholesterolemia, unspecified; Z79.899 Other long term (current) drug therapy
CPT/HCPCS: 36415; 76376; 80053; 81000; 82150; 83605; 83690; 84703; 85025; 85610-TC; 85730-TC; 86140; 99284

== ENCOUNTER 2020-10-14 15:12 | Emergency (ER) | payer MEDICAID ==
[~2020-10-14] VITALS: Ht 152.4 cm; Wt 83.5 kg
[2020-10-14 15:25] VITALS: BP_SYST 155
--- NOTE | 2020-10-14 15:32 | NUR ---
Patient to ER bed 3 to gown for evaluation. Side rails up. Report given to DAVIN GARCIA.
[2020-10-14] MEDS ORDERED: KETOROLAC TROMETHAMINE 15 MG VIAL IVP ONE (15:45)
[2020-10-14] MEDS ORDERED: LR 1,000 ML IV ONE (15:45)
--- NOTE | 2020-10-14 15:45 | NUR ---
pt arrives from home w/ c/o right and left flank pain, 10/10, sharp for the past 2 days. According to the pt she has hx of kidney stones and the pain she has is similar to what she has experinced in the past.
--- NOTE | 2020-10-14 15:50 | NUR ---
ARSENIO Sommer at bedside examining patient.
--- NOTE | 2020-10-14 15:55 | NUR ---
# 22 gauge angiocath placed to RAC. Use of asceptic technique. Opsite placed over site. Blood return noted. Blood for lab drawn from site. Flushed with 10 cc of normal saline. No evidence of infiltration noted. Patient tolerated well.
--- NOTE | 2020-10-14 15:58 | NUR ---
MEDICATED THE PT W/ TORADOL PER MD ORDER. WILL REASSESS
[2020-10-14 16:14] LABS: EOSINOPHILS # (AUTO) 0.1 K/uL (0.0-0.4); HEMOGLOBIN 14.3 g/dL (12.0-16.0); MEAN CORPUSCULAR HGB CONC 34 % (32-36); MONOCYTES # (AUTO) 0.9 K/uL (0.0-1.0); RED CELL DISTRIBUTION WIDTH 14.1 % (9.0-15.0); WHITE BLOOD COUNT (AUTO) 10.4 K/uL (4.8-10.8)
[2020-10-14] MEDS ORDERED: MORPHINE 2 MG/ML INJ. SYRINGE IVP ONE ×2 (16:15→17:30)
[2020-10-14 16:18] LABS: BASOPHILS # (AUTO) 0.1 K/uL (0.0-0.2); BASOPHILS % (AUTO) 0.6 % (0.0-2.0); EOSINOPHILS % (AUTO) 0.9 % (0.0-4.0); HEMATOCRIT 42.4 % (36-48); LYMPHOCYTES # (AUTO) 3.4 K/uL (1.0-5.5); LYMPHOCYTES % (AUTO) 32.7 % (20.5-51.5); MEAN CORPUSCULAR HEMOGLOBIN 31 pg (27-31); MEAN CORPUSCULAR VOLUME 90 fL (79.0-98.0); MONOCYTES % (AUTO) 8.5 % (1.7-9.3); NEUTROPHILS % (AUTO) 57.3 % (40.0-70.0); PLATELET COUNT (AUTO) 410 K/uL (130-430); RED BLOOD CELL COUNT(AUTO) 4.69 MIL/uL (4.2-6.2)
[2020-10-14 16:20] LABS: CALCIUM 9.8 mg/dL (8.4-11.0); CREATININE 1.04 mg/dL (0.55-1.30); POTASSIUM 3.8 mmol/L (3.5-5.1)
[2020-10-14 16:22] LABS: INR 0.9 (0.8-1.2); PROTHROMBIN TIME 9.7 SECS (9.5-12.5)
[2020-10-14 16:32] LABS: ALBUMIN 3.6 g/dL (3.4-4.8); BILIRUBIN,DIRECT 0.2 mg/dL (0.0-0.3); TOTAL BILIRUBIN 0.3 mg/dL (0.0-1.0)
--- NOTE | 2020-10-14 16:50 | NUR ---
MEDICATED THE PT W/ MORPHINE 2MG PER MD ORDER. WILL REASSESS
--- NOTE | 2020-10-14 16:55 | NUR ---
UA COLLECTED AND SENT TO THE LAB
[2020-10-14 17:31] LABS: BILIRUBIN,URINE NEGATIVE (NEGATIVE); BLOOD, URINE NEGATIVE (NEGATIVE); CLARITY/URINE CLEAR (CLEAR); COLOR,URINE YELLOW (YELLOW); GLUCOSE,URINE NEGATIVE (NEGATIVE); KETONES,URINE NEGATIVE (NEGATIVE); LEUKOCYTE ESTERASE ,URINE NEGATIVE (NEGATIVE); NITRITE, URINE NEGATIVE (NEGATIVE); PROTEIN URINE NEGATIVE (NEGATIVE); UROBILINOGEN,URINE 0.2 (0.2-1.0)
--- NOTE | 2020-10-14 17:35 | NUR ---
Patient transported to radiology via gurney, accompanied by staff.
[2020-10-14 18:55] VITALS: BP_SYST 155
--- NOTE | 2020-10-14 18:55 | NUR ---
Patient given written and verbal discharge instructions and verbalizes understanding. ER MD discussed with patient the results and treatment provided. Patient in stable condition. ID arm band removed. IV catheter removed intact and dressing applied, no active bleeding. No prescriptions given. Patient educated on pain management and to follow up with PMD. Pain Scale 0. Opportunity for questions provided and answered. Medication side effect fact sheet provided.
== END 2020-10-14 18:55 | disposition home or self-care (01) ==
LOC: SED 15:12
DX: R10.9 Unspecified abdominal pain (principal); R11.10 Vomiting, unspecified; I10 Essential (primary) hypertension; J45.909 Unspecified asthma, uncomplicated; Z79.899 Other long term (current) drug therapy
CPT/HCPCS: 36415; 74177; 76376; 80048; 80076; 81003; 81025; 83690; 85025; 85610; 87086; 96361; 96374; 96375; 96376; 99285; J1885; J2270; J7030; Q9967

== ENCOUNTER 2021-05-23 20:23 | Emergency (ER) | payer MEDICAID ==
[~2021-05-23] VITALS: Ht 165.1 cm; Wt 88.5 kg
[2021-05-23 20:31] VITALS: BP_SYST 139
[2021-05-23 22:15] LABS: BILIRUBIN,URINE NEGATIVE (NEGATIVE); BLOOD, URINE NEGATIVE (NEGATIVE); CLARITY/URINE CLEAR (CLEAR); COLOR,URINE YELLOW (YELLOW); GLUCOSE,URINE NEGATIVE (NEGATIVE); KETONES,URINE NEGATIVE (NEGATIVE); LEUKOCYTE ESTERASE ,URINE NEGATIVE (NEGATIVE); NITRITE, URINE NEGATIVE (NEGATIVE); PH,URINE 6.5 (5.0-8.0); PROTEIN URINE NEGATIVE (NEGATIVE); UROBILINOGEN,URINE 0.2 (0.2-1.0)
[2021-05-23] MEDS ORDERED: MORPHINE 4 MG INJ. 4 MG/ML VIAL IM ONE (22:15)
[2021-05-23 23:11] LABS: CALCIUM 8.3 mg/dL (8.4-11.0); CREATININE 1.05 mg/dL (0.55-1.30); POTASSIUM 4.6 mmol/L (3.5-5.1)
[2021-05-23 23:16] LABS: ALBUMIN 3.4 g/dL (3.4-4.8); TOTAL BILIRUBIN 0.3 mg/dL (0.0-1.0)
[2021-05-23 23:18] LABS: BASOPHILS # (AUTO) 0.1 K/uL (0.0-0.2); BASOPHILS % (AUTO) 1.2 % (0.0-2.0); EOSINOPHILS # (AUTO) 0.1 K/uL (0.0-0.4); EOSINOPHILS % (AUTO) 1.2 % (0.0-4.0); HEMATOCRIT 39.7 % (36-48); HEMOGLOBIN 13.2 g/dL (12.0-16.0); LYMPHOCYTES % (AUTO) 34.3 % (20.5-51.5); MEAN CORPUSCULAR HEMOGLOBIN 30 pg (27-31); MEAN CORPUSCULAR HGB CONC 33 % (32-36); MEAN CORPUSCULAR VOLUME 91 fL (79.0-98.0); MONOCYTES # (AUTO) 1.1 K/uL (0.0-1.0); MONOCYTES % (AUTO) 9.9 % (1.7-9.3); NEUTROPHILS # (AUTO) 6.2 K/uL (1.8-7.7); NEUTROPHILS % (AUTO) 53.4 % (40.0-70.0); PLATELET COUNT (AUTO) 400 K/uL (130-430); RED BLOOD CELL COUNT(AUTO) 4.35 MIL/uL (4.2-6.2); WHITE BLOOD COUNT (AUTO) 11.5 K/uL (4.8-10.8)
[2021-05-24] MEDS ORDERED: HYDROmorphone 1 MG/ML INJ. CARTRIDGE IVP ONE ×2 (00:45→05:45)
[2021-05-24] MEDS ORDERED: ONDANSETRON HCL 4 MG/2 ML VIAL IVP ONE (00:45)
[2021-05-24 03:32] LABS: BASOPHILS # (AUTO) 0.1 K/uL (0.0-0.2); BASOPHILS % (AUTO) 0.5 % (0.0-2.0); EOSINOPHILS # (AUTO) 0.1 K/uL (0.0-0.4); EOSINOPHILS % (AUTO) 1.2 % (0.0-4.0); HEMATOCRIT 37.5 % (36-48); HEMOGLOBIN 12.7 g/dL (12.0-16.0); LYMPHOCYTES % (AUTO) 36.4 % (20.5-51.5); MEAN CORPUSCULAR HEMOGLOBIN 31 pg (27-31); MEAN CORPUSCULAR HGB CONC 34 % (32-36); MEAN CORPUSCULAR VOLUME 91 fL (79.0-98.0); MONOCYTES # (AUTO) 1.1 K/uL (0.0-1.0); MONOCYTES % (AUTO) 9.8 % (1.7-9.3); NEUTROPHILS # (AUTO) 5.7 K/uL (1.8-7.7); NEUTROPHILS % (AUTO) 52.1 % (40.0-70.0); PLATELET COUNT (AUTO) 366 K/uL (130-430); RED BLOOD CELL COUNT(AUTO) 4.15 MIL/uL (4.2-6.2); RED CELL DISTRIBUTION WIDTH 13.6 % (9.0-15.0)
[2021-05-24 04:40] VITALS: BP_SYST 134
[2021-05-24] MEDS ORDERED: NACL 0.9% 1,000 ML IV ONE (04:45)
[2021-05-24] MEDS ORDERED: NAPR-686 PO (05:39)
[2021-05-24] MEDS ORDERED: HYOS-26 PO (05:39)
[2021-05-24] MEDS ORDERED: HYDROmorphone 1 MG/ML INJ. CARTRIDGE ONE (05:54)
== END 2021-05-24 06:12 | disposition home or self-care (01) ==
LOC: SED 20:23
DX: R10.9 Unspecified abdominal pain (principal); J45.909 Unspecified asthma, uncomplicated; I10 Essential (primary) hypertension
CPT/HCPCS: 36415; 74177; 76376; 76830; 76857; 80053; 81003; 81025; 84443; 85025; 96361; 96374; 96375; 96376; 99285; J1170; J2270; J2405; J7030; Q9967; 81002

== ENCOUNTER 2021-07-28 02:06 | Emergency (ER) | payer MEDICAID ==
[~2021-07-28] VITALS: Ht 152.4 cm; Wt 85.7 kg
[~2021-07-28 02:06] MED LIST changes: +HYOS-26 PO; +NAPR-686 PO
[2021-07-28 02:16] VITALS: BP_SYST 161
[2021-07-28] MEDS ORDERED: ONDANSETRON HCL 4 MG/2 ML VIAL IVP ONE (02:45)
[2021-07-28] MEDS ORDERED: MORPHINE 4 MG INJ. 4 MG/ML VIAL IVP ONE ×2 (02:45→05:30)
[2021-07-28] MEDS ORDERED: NACL 0.9% 1,000 ML IV ONE (02:45)
[2021-07-28 03:05] LABS: BILIRUBIN,URINE NEGATIVE (NEGATIVE); CLARITY/URINE CLEAR (CLEAR); COLOR,URINE YELLOW (YELLOW); GLUCOSE,URINE NEGATIVE (NEGATIVE); KETONES,URINE NEGATIVE (NEGATIVE); LEUKOCYTE ESTERASE ,URINE TRACE (NEGATIVE); NITRITE, URINE NEGATIVE (NEGATIVE); PH,URINE 6.5 (5.0-8.0); PROTEIN URINE NEGATIVE (NEGATIVE); UROBILINOGEN,URINE 0.2 (0.2-1.0)
[2021-07-28 03:09] LABS: BLOOD, URINE TRACE (NEGATIVE)
[2021-07-28 03:23] LABS: BASOPHILS # (AUTO) 0.1 K/uL (0.0-0.2); EOSINOPHILS # (AUTO) 0.1 K/uL (0.0-0.4); LYMPHOCYTES # (AUTO) 3.4 K/uL (1.0-5.5); MONOCYTES # (AUTO) 1.1 K/uL (0.0-1.0); NEUTROPHILS % (AUTO) 55.3 % (40.0-70.0)
[2021-07-28 03:28] LABS: BASOPHILS % (AUTO) 0.7 % (0.0-2.0); EOSINOPHILS % (AUTO) 1.2 % (0.0-4.0); HEMATOCRIT 35.5 % (36-48); HEMOGLOBIN 12.1 g/dL (12.0-16.0); LYMPHOCYTES % (AUTO) 32.1 % (20.5-51.5); MEAN CORPUSCULAR HEMOGLOBIN 31 pg (27-31); MEAN CORPUSCULAR HGB CONC 34 % (32-36); MEAN CORPUSCULAR VOLUME 90 fL (79.0-98.0); MONOCYTES % (AUTO) 10.7 % (1.7-9.3); NEUTROPHILS # (AUTO) 5.8 K/uL (1.8-7.7); PLATELET COUNT (AUTO) 344 K/uL (130-430); RED BLOOD CELL COUNT(AUTO) 3.93 MIL/uL (4.2-6.2); RED CELL DISTRIBUTION WIDTH 13.8 % (9.0-15.0); WHITE BLOOD COUNT (AUTO) 10.5 K/uL (4.8-10.8)
[2021-07-28 03:30] LABS: CALCIUM 7.5 mg/dL (8.4-11.0); CREATININE 0.96 mg/dL (0.55-1.30)
[2021-07-28 03:35] LABS: ALBUMIN 3.1 g/dL (3.4-4.8); TOTAL BILIRUBIN 0.1 mg/dL (0.0-1.0)
[2021-07-28 03:50] LABS: BACTERIA,URINE FEW /HPF (None Seen); MUCUS,URINE 2+ /LPF (None Seen)
[2021-07-28] MEDS ORDERED: ONDA-8 TL (05:35)
[2021-07-28 06:18] VITALS: BP_SYST 137
== END 2021-07-28 06:08 | disposition home or self-care (01) ==
LOC: SED 02:06
DX: R10.31 Right lower quadrant pain (principal); R11.2 Nausea with vomiting, unspecified; I12.9 Hypertensive chronic kidney disease with stage 1 through stage 4 chronic kidney disease, or unspecified chronic kidney disease; J45.909 Unspecified asthma, uncomplicated; K91.86 Retained cholelithiasis following cholecystectomy; Z90.710 Acquired absence of both cervix and uterus; Z79.899 Other long term (current) drug therapy
CPT/HCPCS: 36415; 74176; 76376; 80053; 81000; 83690; 85025; 87086; 96361; 96374; 96375; 96376; 99284; J2270; J2405; J7030

== ENCOUNTER 2021-08-04 02:30 | Emergency (ER) | payer OTHER, MEDICAID ==
[~2021-08-04] VITALS: Ht 152.4 cm; Wt 89.4 kg
[2021-08-04 02:56] VITALS: BP_SYST 145
--- NOTE | 2021-08-04 05:00 | NUR ---
PATIENT'S DAUGHTER IN LAW AND FAMILY SEEN UPSET AND STORMING OUT OF ED BECAUSE OF WAIT TIME.
--- NOTE | 2021-08-04 05:30 | NUR ---
LEFT WITHOUT BEING SEEN.
== END 2021-08-04 05:30 | disposition left against medical advice (07) ==
LOC: SED 02:30
DX: M54.2 Cervicalgia (principal); M25.532 Pain in left wrist; Z53.21 Procedure and treatment not carried out due to patient leaving prior to being seen by health care provider
CPT/HCPCS: 70450-TC; 71046-TC; 72125-TC; 76376

== ENCOUNTER 2021-08-04 06:25 | Emergency (ER) | payer OTHER, MEDICAID ==
[~2021-08-04] VITALS: Ht 152.4 cm; Wt 86.2 kg
[2021-08-04 06:39] VITALS: BP_SYST 157
--- NOTE | 2021-08-04 06:40 | NUR ---
DR. GARCIA TO PATIENT TO ASSESS WHILE TRIAGE BEING COMPLETE.
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
--- NOTE | 2021-08-04 07:15 | NUR ---
LEFT WRIST BRACE APPLIED PER MD BANEGAS
[2021-08-04 07:17] VITALS: BP_SYST 157
--- NOTE | 2021-08-04 07:17 | NUR ---
Patient given written and verbal discharge instructions and verbalizes understanding. ER MD discussed with patient the results and treatment provided. Patient in stable condition. ID arm band removed. NO Rx of given. Patient educated on pain management and to follow up with PMD. Pain Scale 0/10. Opportunity for questions provided and answered. Medication side effect fact sheet provided.
== END 2021-08-04 07:17 | disposition home or self-care (01) ==
LOC: SED 06:25
DX: S13.4XXA Sprain of ligaments of cervical spine, initial encounter (principal); S63.502A Unspecified sprain of left wrist, initial encounter; S09.90XA Unspecified injury of head, initial encounter; I10 Essential (primary) hypertension; J45.909 Unspecified asthma, uncomplicated; E78.00 Pure hypercholesterolemia, unspecified; Z79.899 Other long term (current) drug therapy; V49.59XA Passenger injured in collision with other motor vehicles in traffic accident, initial encounter; Y93.89 Activity, other specified; Y92.89 Other specified places as the place of occurrence of the external cause; Y99.8 Other external cause status
CPT/HCPCS: 99282

== ENCOUNTER 2021-09-21 21:02 | Inpatient (IN) | payer MEDICAID, OTHER ==
[~2021-09-21] VITALS: Ht 154.9 cm; Wt 86.3 kg
[2021-09-21 21:07] VITALS: BP_SYST 131
[2021-09-21 22:19] LABS: BASOPHILS # (AUTO) 0.1 K/uL (0.0-0.2); BASOPHILS % (AUTO) 0.7 % (0.0-2.0); EOSINOPHILS # (AUTO) 0.1 K/uL (0.0-0.4); EOSINOPHILS % (AUTO) 1.4 % (0.0-4.0); HEMATOCRIT 36.3 % (36-48); HEMOGLOBIN 12.5 g/dL (12.0-16.0); LYMPHOCYTES # (AUTO) 3.2 K/uL (1.0-5.5); LYMPHOCYTES % (AUTO) 39.7 % (20.5-51.5); MEAN CORPUSCULAR HEMOGLOBIN 31 pg (27-31); MEAN CORPUSCULAR HGB CONC 34 % (32-36); MEAN CORPUSCULAR VOLUME 90 fL (79.0-98.0); MONOCYTES % (AUTO) 12.7 % (1.7-9.3); NEUTROPHILS # (AUTO) 3.7 K/uL (1.8-7.7); NEUTROPHILS % (AUTO) 45.5 % (40.0-70.0); PLATELET COUNT (AUTO) 335 K/uL (130-430); RED BLOOD CELL COUNT(AUTO) 4.04 MIL/uL (4.2-6.2); RED CELL DISTRIBUTION WIDTH 13.9 % (9.0-15.0); WHITE BLOOD COUNT (AUTO) 8.1 K/uL (4.8-10.8)
[2021-09-21 22:24] LABS: CREATININE 1.08 mg/dL (0.55-1.30); POTASSIUM 3.9 mmol/L (3.5-5.1)
[2021-09-21 22:30] LABS: ALBUMIN 3.4 g/dL (3.4-4.8); TOTAL BILIRUBIN 0.3 mg/dL (0.0-1.0)
[2021-09-21] MEDS ORDERED: MORPHINE SULFATE 10 MG/ML VIAL IVP ONE (23:15)
[2021-09-21] MEDS ORDERED: LORazepam 2 MG/ML VIAL IVP ONE (23:15)
[2021-09-21] MEDS ORDERED: NACL 0.9% 1,000 ML IV ONE (23:15)
[2021-09-22 04:48] LABS: BILIRUBIN,URINE NEGATIVE (NEGATIVE); CLARITY/URINE CLEAR (CLEAR); COLOR,URINE YELLOW (YELLOW); GLUCOSE,URINE NEGATIVE (NEGATIVE); KETONES,URINE NEGATIVE (NEGATIVE); LEUKOCYTE ESTERASE ,URINE NEGATIVE (NEGATIVE); NITRITE, URINE NEGATIVE (NEGATIVE); PROTEIN URINE NEGATIVE (NEGATIVE); UROBILINOGEN,URINE 0.2 (0.2-1.0)
[2021-09-22 05:04] LABS: BLOOD, URINE TRACE (NEGATIVE)
[2021-09-22 05:07] LABS: BENZODIAZEPINE, URINE POSITIVE (NEG <=150); OPIATE, URINE POSITIVE (NEG <=100)
[2021-09-22 05:08] LABS: UR TRICYCLIC ANTIDEPRESSANTS POSITIVE (NEG <=300); URINE OXYCODONE SCREEN POSITIVE (NEG <=100)
[2021-09-22 05:09] LABS: BARBITURATE, URINE NEGATIVE (NEG <=200); CANNABINOID, URINE NEGATIVE (NEG <=50); COCAINE, URINE NEGATIVE (NEG <=150); METHAMPHETAMINES SCREEN,URINE NEGATIVE (NEG <=500); PHENCYCLIDINE SCREEN,URINE NEGATIVE (NEG <=25); URINE AMPHETAMINE NEGATIVE (NEG <=500); URINE METHADONE NEGATIVE (NEG <=200); URINE PROPOXYPHENE SCREEN NEGATIVE (NEG <=300)
[2021-09-22] MEDS ORDERED: HYDROcodone/ACETAMIN 5-325 MG TAB (NORCO/ VICODIN) PO PRN (05:30)
[2021-09-22 05:35] VITALS: BP_SYST 134
[2021-09-22] MEDS: NACL 0.9% 1,000 ML IV SCH ×2 (05:50→21:49)
[2021-09-22 08:00] VITALS: BP_SYST 111
[2021-09-22] MEDS ORDERED: ACETAMINOPHEN 500 MG TABLET PO PRN (10:00)
[2021-09-22] MEDS ORDERED: ONDANSETRON HCL 4 MG/2 ML VIAL IVP PRN (10:00)
[2021-09-22] MEDS ORDERED: guaiFENesin/DEXTROMETHORPHAN 10 ML UDC PO PRN (10:00)
[2021-09-22] MEDS ORDERED: ASPIRIN 325 MG TABLET PO ONE (10:00)
[2021-09-22] MEDS ORDERED: HYDROcodone/ACETAMIN 7.5-325 MG TAB PO PRN (10:00)
[2021-09-22] MEDS ORDERED: ZOLPIDEM TARTRATE 5 MG TABLET PO PRN (10:00)
[2021-09-22] MEDS ORDERED: DOCUSATE SODIUM 100 MG/10 ML UDC PO PRN (10:00)
[2021-09-22] MEDS ORDERED: lisinopriL 20 MG TABLET PO ONE (10:15)
[2021-09-22] MEDS ORDERED: PANTOPRAZOLE SODIUM 40 MG TAB PO ONE (10:15)
[2021-09-22 10:57] LABS: INR 0.9 (0.8-1.2); PROTHROMBIN TIME 9.8 SECS (9.5-12.5)
[2021-09-22 11:11] LABS: FREE T4 (FREE THYROXINE) 1.1 ng/dl (0.8-1.5); PHOSPHORUS 2.3 mg/dL (2.7-4.5); THYROID STIMULATING HORMONE 2.39 uIu/mL (0.36-3.74)
[2021-09-22] MEDS: MORPHINE 2 MG/ML INJ. SYRINGE IVP PRN ×3 (11:49→21:51)
[2021-09-22 12:00] VITALS: BP_SYST 122
[2021-09-22 16:00] VITALS: BP_SYST 106
[2021-09-22 20:00] VITALS: BP_SYST 139
[2021-09-22 23:40] VITALS: BP_SYST 134
[2021-09-23] MEDS: MORPHINE 2 MG/ML INJ. SYRINGE IVP PRN ×5 (02:00→20:30)
[2021-09-23] MEDS: NACL 0.9% 1,000 ML IV SCH ×3 (05:00→20:09)
[2021-09-23 06:55] LABS: BASOPHILS % (AUTO) 0.5 % (0.0-2.0); EOSINOPHILS # (AUTO) 0.2 K/uL (0.0-0.4); EOSINOPHILS % (AUTO) 2.5 % (0.0-4.0); HEMATOCRIT 33.2 % (36-48); HEMOGLOBIN 11.5 g/dL (12.0-16.0); LYMPHOCYTES % (AUTO) 44.1 % (20.5-51.5); MEAN CORPUSCULAR HEMOGLOBIN 31 pg (27-31); MEAN CORPUSCULAR HGB CONC 35 % (32-36); MEAN CORPUSCULAR VOLUME 90 fL (79.0-98.0); MONOCYTES # (AUTO) 0.7 K/uL (0.0-1.0); MONOCYTES % (AUTO) 9.8 % (1.7-9.3); NEUTROPHILS # (AUTO) 2.9 K/uL (1.8-7.7); NEUTROPHILS % (AUTO) 43.1 % (40.0-70.0); PLATELET COUNT (AUTO) 302 K/uL (130-430); RED CELL DISTRIBUTION WIDTH 13.6 % (9.0-15.0); WHITE BLOOD COUNT (AUTO) 6.7 K/uL (4.8-10.8)
[2021-09-23 07:47] LABS: CALCIUM 7.9 mg/dL (8.4-11.0); CREATININE 0.8 mg/dL (0.55-1.30)
[2021-09-23] MEDS ORDERED: POTASSIUM CHLORIDE 20 MEQ TAB.PRT.SR PO PRN (09:00)
[2021-09-23 09:15] VITALS: BP_SYST 123
[2021-09-23] MEDS: ASPIRIN 81 MG TAB.CHEW PO SCH (10:19)
[2021-09-23] MEDS: lisinopriL 20 MG TABLET PO SCH (10:19)
[2021-09-23] MEDS: PANTOPRAZOLE SODIUM 40 MG TAB PO SCH (10:19)
[2021-09-23 16:09] VITALS: BP_SYST 105
[2021-09-23] MEDS ORDERED: LORazepam 2 MG/ML VIAL IVP ONE (16:15)
[2021-09-23 20:10] VITALS: BP_SYST 112
[2021-09-24 00:30] VITALS: BP_SYST 115
[2021-09-24] MEDS: MORPHINE 2 MG/ML INJ. SYRINGE IVP PRN ×3 (01:16→09:29)
[2021-09-24] MEDS: NACL 0.9% 1,000 ML IV SCH (05:17)
[2021-09-24 06:53] LABS: CALCIUM 8.4 mg/dL (8.4-11.0); CREATININE 0.87 mg/dL (0.55-1.30); POTASSIUM 3.8 mmol/L (3.5-5.1)
[2021-09-24 06:58] LABS: BASOPHILS % (AUTO) 0.5 % (0.0-2.0); EOSINOPHILS # (AUTO) 0.2 K/uL (0.0-0.4); EOSINOPHILS % (AUTO) 2.5 % (0.0-4.0); HEMATOCRIT 34.5 % (36-48); HEMOGLOBIN 11.8 g/dL (12.0-16.0); LYMPHOCYTES # (AUTO) 3.1 K/uL (1.0-5.5); LYMPHOCYTES % (AUTO) 38.8 % (20.5-51.5); MEAN CORPUSCULAR HEMOGLOBIN 31 pg (27-31); MEAN CORPUSCULAR HGB CONC 34 % (32-36); MEAN CORPUSCULAR VOLUME 90 fL (79.0-98.0); MONOCYTES # (AUTO) 0.8 K/uL (0.0-1.0); MONOCYTES % (AUTO) 10.2 % (1.7-9.3); NEUTROPHILS # (AUTO) 3.9 K/uL (1.8-7.7); PLATELET COUNT (AUTO) 321 K/uL (130-430); RED BLOOD CELL COUNT(AUTO) 3.81 MIL/uL (4.2-6.2); RED CELL DISTRIBUTION WIDTH 13.4 % (9.0-15.0)
[2021-09-24 08:00] VITALS: BP_SYST 129
[2021-09-24] MEDS: ASPIRIN 81 MG TAB.CHEW PO SCH (09:29)
[2021-09-24] MEDS: PANTOPRAZOLE SODIUM 40 MG TAB PO SCH (09:30)
[2021-09-24] MEDS: lisinopriL 20 MG TABLET PO SCH (09:30)
[2021-09-24 11:51] VITALS: BP_SYST 134
[2021-09-24 14:06] VITALS: BP_SYST 118
== END 2021-09-24 14:50 | disposition home or self-care (01) | DRG 58 ==
LOC: SED 21:02 → SMU 09-22 04:32
PROVIDERS: ADMIT Family Medicine; ATTEND Family Medicine
DX: G81.94 Hemiplegia, unspecified affecting left nondominant side (principal); G93.41 Metabolic encephalopathy; E44.1 Mild protein-calorie malnutrition; R65.10 Systemic inflammatory response syndrome (SIRS) of non-infectious origin without acute organ dysfunction; F13.20 Sedative, hypnotic or anxiolytic dependence, uncomplicated; E83.39 Other disorders of phosphorus metabolism; E86.0 Dehydration; F11.20 Opioid dependence, uncomplicated; K50.90 Crohn's disease, unspecified, without complications; I10 Essential (primary) hypertension; G89.29 Other chronic pain; F41.9 Anxiety disorder, unspecified; E78.00 Pure hypercholesterolemia, unspecified; J45.909 Unspecified asthma, uncomplicated; E78.5 Hyperlipidemia, unspecified; Z20.822 Contact with and (suspected) exposure to COVID-19; R74.01 Elevation of levels of liver transaminase levels; Z83.3 Family history of diabetes mellitus; Z82.49 Family history of ischemic heart disease and other diseases of the circulatory system
CPT/HCPCS: 36415; 70450-TC; 70551; 71045; 76376; 80048; 80053; 80061; 80307; 81003; 82150; 83036; 83605; 83690; 83735; 83880; 84100; 84439; 84443; 84484; 85025; 85610-TC; 85651-TC; 85730-TC; 93005; 96361; 96374; 96375; 97110-GP; 97116-GP; 97530-GP; 99285; J2060; J2270; J2405

== ENCOUNTER 2021-10-03 09:00 | Inpatient (IN) | payer MEDICAID ==
[~2021-10-03] VITALS: Ht 152.4 cm; Wt 91.6 kg
[2021-10-03 09:10] VITALS: BP_SYST 110
--- NOTE | 2021-10-03 09:15 | NUR ---
Placed in room 3 . Placed on unclaimed property officer, blood pressure machine and pulse oximeter. To gown for exam. Side rails up. Report given to JOSE JOHNSON.
--- NOTE | 2021-10-03 09:20 | NUR ---
PT AMBULATES TO BATHROOM WITH STEADY GAIT TO PROVIDE URINE SAMPLE
--- NOTE | 2021-10-03 09:24 | NUR ---
RECEIVED PT FROM JOSE DONOVAN. PT HAD RECENT STROKE WITH NO DEFICITS, WAS DISCHARGED WITH ORDER FOR FLOMAX. PT STATES SHE IS HAVING A HARD TIME URINATING WITH C/O URINARY FREQUENCY. PT UNABLE TO VOID LARGE AMOUNT OF URINE. PT HAVING EXTREME PAIN WHEN URINATING AND HAS LOWER ABDOMINAL PAIN. UNABLE TO DETECT BLADDER DISTENTION AT THIS TIME. PT IS AAOX4. RESP E/U. ON R/A. DENIES N/V/D/C. DISTAL PULSES NORMAL, SKIN INTACT, NO EDEMA. SIDERAILS UP X2.
[2021-10-03] MEDS ORDERED: MORPHINE 4 MG INJ. 4 MG/ML VIAL IVP ONE ×2 (11:00)
[2021-10-03] MEDS ORDERED: KETOROLAC TROMETHAMINE 30 MG VIAL IVP ONE (11:00)
[2021-10-03] MEDS ORDERED: NACL 0.9% 1,000 ML IV ONE ×3 (11:00→17:45)
--- NOTE | 2021-10-03 11:00 | NUR ---
RAMEY CATH 16 FR PLACED WITH 30CC CLOUDY URINE RETURED, BALLOON INFLATED WITH 10ML NS. PT FEEL NO RELIEF OF LOWER ABDOMEN PAIN. DR. RUIZ MADE AWARE.
[2021-10-03 11:06] LABS: BASOPHILS # (AUTO) 0.1 K/uL (0.0-0.2); BASOPHILS % (AUTO) 0.7 % (0.0-2.0); EOSINOPHILS # (AUTO) 0.1 K/uL (0.0-0.4); EOSINOPHILS % (AUTO) 1.1 % (0.0-4.0); HEMATOCRIT 36.7 % (36-48); HEMOGLOBIN 12.4 g/dL (12.0-16.0); LYMPHOCYTES # (AUTO) 3.1 K/uL (1.0-5.5); LYMPHOCYTES % (AUTO) 29.5 % (20.5-51.5); MEAN CORPUSCULAR HEMOGLOBIN 31 pg (27-31); MEAN CORPUSCULAR HGB CONC 34 % (32-36); MEAN CORPUSCULAR VOLUME 90 fL (79.0-98.0); MONOCYTES % (AUTO) 9.9 % (1.7-9.3); NEUTROPHILS # (AUTO) 6.2 K/uL (1.8-7.7); NEUTROPHILS % (AUTO) 58.8 % (40.0-70.0); PLATELET COUNT (AUTO) 391 K/uL (130-430); RED BLOOD CELL COUNT(AUTO) 4.06 MIL/uL (4.2-6.2); RED CELL DISTRIBUTION WIDTH 13.6 % (9.0-15.0); WHITE BLOOD COUNT (AUTO) 10.5 K/uL (4.8-10.8)
[2021-10-03 11:16] LABS: CALCIUM 8.5 mg/dL (8.4-11.0); CREATININE 0.87 mg/dL (0.55-1.30); POTASSIUM 4.2 mmol/L (3.5-5.1)
[2021-10-03 11:22] LABS: ALBUMIN 2.9 g/dL (3.4-4.8); TOTAL BILIRUBIN 0.2 mg/dL (0.0-1.0)
--- NOTE | 2021-10-03 11:51 | NUR ---
PT TAKEN FOR CT SCAN
[2021-10-03 12:11] LABS: BILIRUBIN,URINE NEGATIVE (NEGATIVE); BLOOD, URINE 3+ (NEGATIVE); CLARITY/URINE TURBID (CLEAR); COLOR,URINE YELLOW (YELLOW); GLUCOSE,URINE NEGATIVE (NEGATIVE); KETONES,URINE NEGATIVE (NEGATIVE); LEUKOCYTE ESTERASE ,URINE 3+ (NEGATIVE); NITRITE, URINE NEGATIVE (NEGATIVE); PROTEIN URINE 2+ (NEGATIVE); UROBILINOGEN,URINE 0.2 (0.2-1.0)
[2021-10-03 12:50] LABS: BACTERIA,URINE MODERATE /HPF (None Seen); RBC,URINE 20-50 /HPF (0-3)
[2021-10-03] MEDS ORDERED: cefTRIAXone 1 GM in D5W 50 ML IV ONE (13:30)
[2021-10-03] MEDS ORDERED: cefTRIAXone 1 GM VIAL ONE (14:36)
[2021-10-03] MEDS ORDERED: MORPHINE 4 MG INJ. 4 MG/ML VIAL ONE (14:38)
--- NOTE | 2021-10-03 14:59 | NUR ---
MORPHINE 4MG IVP GIVEN FOR LOWER AB PAIN. [facility] REC REVIEWED AND COMPLETED.
--- NOTE | 2021-10-03 15:20 | NUR ---
NOTIFIED ED ADMITTING REGARDING DR. SOSA'S REQUEST FOR ADMISSION/TRANSFER. PER DR. SOSA, PT IS STABLE FOR TRANSFER. WILL CONTACT DROSSER REGARDING THIS MATTER. PER FACESHEET: [facility]
--- NOTE | 2021-10-03 15:53 | NUR ---
COVID SPECIMEN SENT TO LAB.
[2021-10-03] MEDS ORDERED: fentaNYL CITRATE/PF 100 MCG/2 ML AMP IVP ONE (17:15)
--- NOTE | 2021-10-03 18:09 | NUR ---
AAdmit bed requested Patient will be admitted to care of Dr. BURNS. Admitted tO MED SURG unit. Diagnosis PYLONEPHRITIS Inpatient (Yes or No) YES Observation (Yes or No) NO Orientation concerns or request close to nursing station (Yes or No) NO Covid Status NEGATIVE On vent or bipap NO Isolation requirements NO Needs a sitter NO From Home (Yes or if No enter name of facility) YES Requires Dialysis (Yes or No) NO Med Rec Completed (Yes of No) YES, PT HAS NO HOME MEDS
--- NOTE | 2021-10-03 18:32 | NUR ---
FENTANLY IVP GIVEN FOR 9/10 LOWER AB PAIN. PT MADE AWARE SHE WILL TRANSFER TO FLOOR.
[2021-10-03] MEDS ORDERED: ONDANSETRON HCL 4 MG/2 ML VIAL IVP PRN (19:00)
[2021-10-03] MEDS ORDERED: KETOROLAC TROMETHAMINE 15 MG VIAL IVP PRN (19:00)
[2021-10-03] MEDS ORDERED: MUPIROCIN 2% TOPICAL OINTMENT 22 GM NS PRN (19:00)
[2021-10-03] MEDS ORDERED: ACETAMINOPHEN 325 MG TABLET PO PRN ×2 (19:00)
[2021-10-03] MEDS ORDERED: POTASSIUM CHLORIDE 20 MEQ TAB.PRT.SR PO PRN (19:00)
[2021-10-03] MEDS ORDERED: MAGNESIUM SULFATE 50 ML IV PRN (19:00)
[2021-10-03] MEDS ORDERED: DOCUSATE SODIUM 100 MG CAPSULE PO PRN (19:00)
[2021-10-03] MEDS ORDERED: ZOLPIDEM TARTRATE 5 MG TABLET PO PRN (19:00)
[2021-10-03] MEDS ORDERED: LORazepam 1 MG TABLET PO PRN (19:15)
[2021-10-03] MEDS ORDERED: TAMSULOSIN HCL 0.4 MG CAP PO ONE (19:15)
[2021-10-03] MEDS: NACL 0.9% 1,000 ML IV SCH (19:16)
--- NOTE | 2021-10-03 19:17 | NUR ---
PT ENDORSED TO JOSE TRINIDAD. ALL QUESTIONS AND CONCERNS ADDRESSED.
--- NOTE | 2021-10-03 19:25 | NUR ---
Pt received up in bed in stable condition. No signs of distress. Breathing adequately on RA. Denies any pain at this time. IVF running as ordered. Tolerating well.
--- NOTE | 2021-10-03 21:06 | NUR ---
Patient will be admitted to care of MD [place]. Admitted to MS unit. Will go to room 118A. Complete and up to date summary report printed. SBAR report given at bedside to JOSE Galvan with opportunity for questions.
--- NOTE | 2021-10-03 21:35 | NUR ---
Received patient from Emergency Department, report given by Honey Guerra 50 years old female, with chief complaints of Urinary retention and frequency. Diagnosed with pyelonephritis. History of CVA, Gallstone removal. Full Code status. No known allergy. Alert and Oriented x4, Guinean speaking. On Regular diet. Urology Consult order under Dr. Don. Covid Negative. Oriented with the call light system. Routine nursing rounds.
[2021-10-03 22:21] VITALS: BP_SYST 149
--- NOTE | 2021-10-03 22:32 | NUR ---
CONSULTATION CALLED FOR DR. CARREON FOR CONSULT OF PYLONEPHRITIS ORDER BY SPOKE WITH DR. VELMA SHEA REQUESTED TO SPEAK WITH BROOK
[2021-10-03 22:49] VITALS: BP_SYST 149
[2021-10-03] MEDS: MORPHINE 2 MG/ML INJ. SYRINGE IVP PRN (23:09)
[2021-10-04 00:04] VITALS: BP_SYST 149
[2021-10-04] MEDS: MORPHINE 2 MG/ML INJ. SYRINGE IVP PRN ×3 (03:34→12:17)
[2021-10-04] MEDS: NACL 0.9% 1,000 ML IV SCH ×2 (04:41→13:35)
--- NOTE | 2021-10-04 07:25 | NUR ---
OPENING NOTE RECEIVED SBAR FROM SENIOR INSTRUMENTATION ENGINEER RN PT IN BED RESPIRATIONS EVEN, REGULAR AND NON-LABORED IV RUNNING ORDERED. NO IV RELATED COMPLICATION NOTED. SITE KEPT CLEAN AND INTACT PT C/O PAIN TO ABDOMEN. WILL PROVIDE PAIN MANAGEMENT ORDERED. RAMEY CATHETER GRAINING BY GRAVITY.
[2021-10-04 08:00] VITALS: BP_SYST 132
[2021-10-04] MEDS ORDERED: SULF1TAB48 PO (08:20)
[2021-10-04] MEDS ORDERED: TAMS-11 PO (08:22)
[2021-10-04] MEDS: TAMSULOSIN HCL 0.4 MG CAP PO SCH (08:30)
[2021-10-04] MEDS: lisinopriL 20 MG TABLET PO SCH (08:30)
[2021-10-04 12:00] VITALS: BP_SYST 138
--- NOTE | 2021-10-04 12:00 | NUR ---
NURSE NOTE INFORMED PATIENT THAT DR BURNS HAS DISCHARGED HER. PATIENT STATES SHE DOES NOT FEEL THAT DISCHARGE IS APPROPRIATE AND DOES NOT WANT TO LEAVE. EDUCATED PATIENT THAT SHE WILL BE DISCHARGED WITH ANTIBIOTICS TO TREAT UTI. PATIENT CONTINUES TO STATE THAT SHE DOES NOT FEEL READY TO DISCHARGE. INFORMED CHARGE AND CASE MANAGEMENT.
--- NOTE | 2021-10-04 12:10 | NUR ---
NURSE'S NOTE REMOVED RAMEY CATHETER FOR DISCHARGING.
--- NOTE | 2021-10-04 13:30 | NUR ---
NURSE NOTE ZEINA BEDSIDE WITH PATIENT DISCUSSING DISCHARGE
--- NOTE | 2021-10-04 14:02 | NUR ---
discharge Stella Garza and I discussed with patient dc to home all questions answered, patient verbalized understanding and agrees to discharge after current IV antibiotic is complete. Patient is to follow up with her pain management team and medications sent to pharmacy.
[2021-10-04 15:44] VITALS: BP_SYST 138
[2021-10-04 16:00] VITALS: BP_SYST 137
--- NOTE | 2021-10-04 16:45 | NUR ---
NURSE NOTE PATIENT INFORMED ME THAT SHE HAD BLOOD IN HER STOOL AND LOWER ABDOMEN PAIN. INSPECTED ABDOMEN, NO OBVIOUS LUMPS OR MASSES, ACTIVE BOWELS SOUNDS IN ALL 4 QUARTERS, PERCUSSION DOES NOT ILLICIT PAIN, ABDOMEN IS SOFT AND NON DISTENDED.. PAGED DR BURNS
--- NOTE | 2021-10-04 16:57 | NUR ---
INFORMED DR BURNS THAT PATIENT HAS BLOOD IN HER STOOL, AND RIGHT PELVIC PAIN. PER DR BURNS HOLD DC, CONSULT GI
--- NOTE | 2021-10-04 16:59 | NUR ---
CONSULTATION PAGED REASON FOR CONSULTATION:BLOOD IN STOOL WAS CONSULT CALLED?Y -PERSON WHO WAS NOTIFIED:RL CONSULTING PHYSICIAN:HUANG CONTI [employer] SPECIALTY:GI [employer] PHONE NUMBER:[phone] REQUESTING PHYSICIAN:MARI PETERSON
[2021-10-04] MEDS: cefTRIAXone 1 GM in D5W 50 ML IV SCH (17:29)
--- NOTE | 2021-10-04 18:24 | NUR ---
MD DR BURNS CALLED WITH NEW ORDERS FOR PATIENT
--- NOTE | 2021-10-04 19:35 | NUR ---
CLOSING NOTE PROVIDED SBAR TO NIGHT RN PT IN BED RESPIRATIONS EVEN,REGUALR, AND NON-LABORED IV RUNNING ORDERED COLLECTED STOOL FOR THE TEST ENDORSED CARE
[2021-10-04 21:28] VITALS: BP_SYST 139
[2021-10-04] MEDS: HYDROcodone/ACETAMIN 5-325 MG TAB (NORCO/ VICODIN) PO PRN (21:28)
[2021-10-05] MEDS: NACL 0.9% 1,000 ML IV SCH ×2 (01:00→10:41)
[2021-10-05 08:00] VITALS: BP_SYST 130
[2021-10-05] MEDS ORDERED: PANTOPRAZOLE SODIUM 40 MG TAB PO SCH (09:00)
[2021-10-05] MEDS: TAMSULOSIN HCL 0.4 MG CAP PO SCH (09:21)
[2021-10-05] MEDS: lisinopriL 20 MG TABLET PO SCH (09:22)
[2021-10-05] MEDS: HYDROcodone/ACETAMIN 5-325 MG TAB (NORCO/ VICODIN) PO PRN ×2 (09:37→14:57)
[2021-10-05 12:00] VITALS: BP_SYST 123
[2021-10-05] MEDS: cefTRIAXone 1 GM in D5W 50 ML IV SCH (13:55)
[2021-10-05 16:00] VITALS: BP_SYST 120
== END 2021-10-05 15:30 | disposition home or self-care (01) | DRG 463 ==
LOC: SED 09:00 → SMU 17:46
PROVIDERS: ADMIT General Practice; ATTEND General Practice
DX: N10 Acute pyelonephritis (principal); E44.1 Mild protein-calorie malnutrition; E66.9 Obesity, unspecified; K59.00 Constipation, unspecified; N20.0 Calculus of kidney; K50.90 Crohn's disease, unspecified, without complications; F10.20 Alcohol dependence, uncomplicated; Y90.9 Presence of alcohol in blood, level not specified; Z20.822 Contact with and (suspected) exposure to COVID-19; I10 Essential (primary) hypertension; Z87.442 Personal history of urinary calculi; Z79.891 Long term (current) use of opiate analgesic; Z79.899 Other long term (current) drug therapy; Z79.1 Long term (current) use of non-steroidal anti-inflammatories (NSAID); Z68.39 Body mass index [BMI] 39.0-39.9, adult
CPT/HCPCS: 36415; 76376; 80053; 81000; 82272; 83605; 85025; 87040; 87086; 96374; 96375; 96376; 99285; J0696; J1885; J2270; J2405; J3010; J7060

== ENCOUNTER 2022-04-28 19:49 | Emergency (ER) | payer MEDICAID ==
[~2022-04-28] VITALS: Ht 152.4 cm; Wt 88.5 kg
[~2022-04-28 19:49] MED LIST changes: +SULF1TAB48 PO; +TAMS-11 PO
[2022-04-28 20:20] VITALS: BP_SYST 138
--- NOTE | 2022-04-28 21:55 | NUR ---
PER REGISTRATION, PT STATED SHE DID NOT WANT TO BE SEEN BY DR. DENG AND WAS LEAVING. PATIENT LEFT WITHOUT BEING SEEN.
== END 2022-04-28 21:55 | disposition left against medical advice (07) ==
LOC: SED 19:49
DX: R10.2 Pelvic and perineal pain (principal); Z53.21 Procedure and treatment not carried out due to patient leaving prior to being seen by health care provider
CPT/HCPCS: 99281

== ENCOUNTER 2022-05-14 00:46 | Emergency (ER) | payer MEDICAID ==
[~2022-05-14] VITALS: Ht 152.4 cm; Wt 88.5 kg
[2022-05-14 00:50] VITALS: BP_SYST 162
--- NOTE | 2022-05-14 00:55 | NUR ---
Patient to ER bed 1 to gown for evaluation. Side rails up. Report given to MARCY GARCIA(REG).
--- NOTE | 2022-05-14 01:15 | NUR ---
PT IS AA&OX4. AFEBRILE. NAD. C/O RLQ ABD PAIN. PER PT, SHE TOOK PERCOCET 10MG W/ NO EFFECT. PER PT, SHE PASSED OUT AFTER TAKING A SHOWER IN HER ROOM THEN NOTICED SOME BLOOD ON HER HEAD. NOTICED W/ SCANT DRIED BLOOD ON OCCIPITAL AREA. NO N/V/. PT AMBULATES W/ CANE. SAFE & HAZARD FREE ENVIRONMENT PROVIDED. URINE COLLECTED AND SENT TO LAB.
--- NOTE | 2022-05-14 01:26 | NUR ---
ER at bedside examining patient.
[2022-05-14] MEDS ORDERED: KETOROLAC TROMETHAMINE 30 MG VIAL IM ONE (01:45)
[2022-05-14 01:50] LABS: CALCIUM 8.6 mg/dL (8.4-11.0); CREATININE 0.91 mg/dL (0.55-1.30)
[2022-05-14 01:57] LABS: ALBUMIN 3.5 g/dL (3.4-4.8); TOTAL BILIRUBIN 0.3 mg/dL (0.0-1.0)
--- NOTE | 2022-05-14 02:10 | NUR ---
patient states Toradol is not going to do anything for me. I take percocet for pain. I already told the doctor I want something stronger. " Patient asked if she is refusing medication. Patient stated "I'll take it. It may help with my swelling." Md informed of patient's concerns
[2022-05-14 02:14] LABS: BASOPHILS # (AUTO) 0.1 K/uL (0.0-0.2); BASOPHILS % (AUTO) 0.6 % (0.0-2.0); EOSINOPHILS # (AUTO) 0.1 K/uL (0.0-0.4); EOSINOPHILS % (AUTO) 1.3 % (0.0-4.0); HEMATOCRIT 37.7 % (36-48); HEMOGLOBIN 12.4 g/dL (12.0-16.0); LYMPHOCYTES # (AUTO) 3.8 K/uL (1.0-5.5); LYMPHOCYTES % (AUTO) 33.7 % (20.5-51.5); MEAN CORPUSCULAR HEMOGLOBIN 29 pg (27-31); MEAN CORPUSCULAR HGB CONC 33 % (32-36); MEAN CORPUSCULAR VOLUME 89 fL (79.0-98.0); MONOCYTES % (AUTO) 8.9 % (1.7-9.3); NEUTROPHILS # (AUTO) 6.3 K/uL (1.8-7.7); NEUTROPHILS % (AUTO) 55.5 % (40.0-70.0); PLATELET COUNT (AUTO) 396 K/uL (130-430); RED BLOOD CELL COUNT(AUTO) 4.23 MIL/uL (4.2-6.2); RED CELL DISTRIBUTION WIDTH 14.3 % (9.0-15.0); WHITE BLOOD COUNT (AUTO) 11.4 K/uL (4.8-10.8)
[2022-05-14 02:57] LABS: BILIRUBIN,URINE NEGATIVE (NEGATIVE); COLOR,URINE YELLOW (YELLOW); GLUCOSE,URINE NEGATIVE (NEGATIVE); KETONES,URINE NEGATIVE (NEGATIVE); LEUKOCYTE ESTERASE ,URINE NEGATIVE (NEGATIVE); NITRITE, URINE NEGATIVE (NEGATIVE); PH,URINE 5.5 (5.0-8.0); PROTEIN URINE NEGATIVE (NEGATIVE); UROBILINOGEN,URINE 0.2 (0.2-1.0)
[2022-05-14 03:07] LABS: BLOOD, URINE TRACE (NEGATIVE); CLARITY/URINE HAZY (CLEAR)
[2022-05-14 03:10] LABS: BACTERIA,URINE None Seen /HPF (None Seen); WBC,URINE 0-3 /HPF (0-3)
[2022-05-14 05:06] VITALS: BP_SYST 136
== END 2022-05-14 05:06 | disposition home or self-care (01) ==
LOC: SED 00:46
DX: R10.31 Right lower quadrant pain (principal); R55 Syncope and collapse; R11.2 Nausea with vomiting, unspecified; J45.909 Unspecified asthma, uncomplicated; I11.0 Hypertensive heart disease with heart failure; I50.9 Heart failure, unspecified; Z79.899 Other long term (current) drug therapy
CPT/HCPCS: 99285; 74176; 96374; 80053; 81000; 83690; 85025; 84484; 36415; 93005; 76376; J1885

== ENCOUNTER 2022-06-13 21:16 | Emergency (ER) | payer MEDICAID ==
[~2022-06-13] VITALS: Ht 152.4 cm; Wt 86.6 kg
[2022-06-13 21:49] VITALS: BP_SYST 163
[2022-06-13] MEDS ORDERED: ONDANSETRON 4 MG ODT TAB PO ONE (22:00)
[2022-06-13 22:21] LABS: BILIRUBIN,URINE NEGATIVE (NEGATIVE); BLOOD, URINE NEGATIVE (NEGATIVE); CLARITY/URINE CLEAR (CLEAR); COLOR,URINE YELLOW (YELLOW); GLUCOSE,URINE NEGATIVE (NEGATIVE); KETONES,URINE 1+ (NEGATIVE); LEUKOCYTE ESTERASE ,URINE NEGATIVE (NEGATIVE); NITRITE, URINE NEGATIVE (NEGATIVE); PROTEIN URINE 1+ (NEGATIVE); UROBILINOGEN,URINE 0.2 (0.2-1.0)
[2022-06-13 22:27] LABS: BACTERIA,URINE FEW /HPF (None Seen); RBC,URINE 0-3 /HPF (0-3); WBC,URINE 0-3 /HPF (0-3)
[2022-06-13 22:28] LABS: MUCUS,URINE None Seen /LPF (None Seen)
--- NOTE | 2022-06-13 23:12 | NUR ---
ER at bedside examining patient.
--- NOTE | 2022-06-13 23:12 | NUR ---
PT C/O 10 OUT 10 PAIN IN GROIN AREA, WENT TO A DIFFERENT HOSPITAL 6 DAYS AGO FOR UTI AND THERE IS NO RELIEF. PT CONNECTED TO VS MONITOR. VSS NAD EVEN UNLABORED RR SAFETY RAILS UP.
--- NOTE | 2022-06-13 23:20 | NUR ---
ER at bedside examining patient.
[2022-06-13] MEDS ORDERED: ONDA8TAB60 PO (23:23)
[2022-06-13] MEDS ORDERED: NACL 0.9% 1,000 ML IV ONE (23:30)
[2022-06-13] MEDS ORDERED: MORPHINE 4 MG INJ. 4 MG/ML VIAL IVP ONE (23:30)
[2022-06-13] MEDS ORDERED: ONDANSETRON HCL 4 MG/2 ML VIAL IVP ONE (23:30)
--- NOTE | 2022-06-13 23:45 | NUR ---
# 20 gauge angiocath placed to RAC. Use of asceptic technique. Opsite placed over site. Blood return noted. Blood for lab drawn from site. Flushed with 10 cc of normal saline. No evidence of infiltration noted. Patient tolerated well.
[2022-06-14] MEDS ORDERED: KETOROLAC TROMETHAMINE 30 MG VIAL IVP ONE (00:15)
[2022-06-14] MEDS ORDERED: MORPHINE 4 MG INJ. 4 MG/ML VIAL IVP ONE (01:30)
[2022-06-14 01:56] VITALS: BP_SYST 139
--- NOTE | 2022-06-14 02:00 | NUR ---
Patient given written and verbal discharge instructions and verbalizes understanding. ER MD discussed with patient the results and treatment provided. Patient in stable condition. ID arm band removed. IV catheter removed intact and dressing applied, no active bleeding. Rx of zofran given. Patient educated on pain management and to follow up with PMD. Pain Scale 0. Opportunity for questions provided and answered. Medication side effect fact sheet provided.
== END 2022-06-14 01:56 | disposition home or self-care (01) ==
LOC: SED 21:16
DX: R10.30 Lower abdominal pain, unspecified (principal); R30.0 Dysuria; R11.2 Nausea with vomiting, unspecified; J45.909 Unspecified asthma, uncomplicated; I10 Essential (primary) hypertension; Z79.899 Other long term (current) drug therapy
CPT/HCPCS: 99284; 96374; 96361; 96375 ×2; 81000; 96376; Q0162; J2405; J2270 ×2; J7030; J1885

== ENCOUNTER 2022-09-08 10:39 | Observation (INO) | payer MEDICAID ==
[~2022-09-08] VITALS: Ht 152.4 cm; Wt 85.3 kg
[~2022-09-08 10:39] MED LIST changes: +ONDA8TAB60 PO
--- NOTE | 2022-09-08 10:45 | NUR ---
Code Stroke called; Patient to CT suite at this time.
[2022-09-08] MEDS ORDERED: IOHEXOL 350 mgI/mL, 150 ML INFUS..BTL IV ONE (10:51)
--- NOTE | 2022-09-08 10:51 | NUR ---
TWO STROKE ALERTS IN ED AT THE SAME TIME. STROKE ALERT CALLED AT 1052.
--- NOTE | 2022-09-08 10:55 | NUR ---
# 20 gauge angiocath placed to LAC. Use of asceptic technique. Opsite placed over site. Blood return noted. Flushed with 10 cc of normal saline. No evidence of infiltration noted. Patient tolerated well.
--- NOTE | 2022-09-08 11:00 | NUR ---
Patient complained of tingling and drooping on right side of face and no movement/previous deficit on Left complete body. Limping with walk/uses a cane.
--- NOTE | 2022-09-08 11:04 | NUR ---
PT RETURNED FROM CT
--- NOTE | 2022-09-08 11:12 | NUR ---
LAB AT THE BEDSIDE FOR BLOOD DRAW
--- NOTE | 2022-09-08 11:20 | NUR ---
[facility] EXAMINING PT
[2022-09-08] MEDS ORDERED: ASPIRIN 325 MG TABLET PO ONE (11:45)
--- NOTE | 2022-09-08 12:00 | NUR ---
Patient without noticible change at this time. Patient made comfortable in bed and advised we are awaiting inppatient room and that room will be given soon.
[2022-09-08 12:06] LABS: BASOPHILS # (AUTO) 0.1 K/uL (0.0-0.2); BASOPHILS % (AUTO) 0.7 % (0.0-2.0); EOSINOPHILS # (AUTO) 0.1 K/uL (0.0-0.4); EOSINOPHILS % (AUTO) 1.4 % (0.0-4.0); HEMATOCRIT 35.5 % (36-48); HEMOGLOBIN 11.8 g/dL (12.0-16.0); LYMPHOCYTES # (AUTO) 2.7 K/uL (1.0-5.5); LYMPHOCYTES % (AUTO) 29.4 % (20.5-51.5); MEAN CORPUSCULAR HEMOGLOBIN 30 pg (27-31); MEAN CORPUSCULAR HGB CONC 33 % (32-36); MEAN CORPUSCULAR VOLUME 90 fL (79.0-98.0); MONOCYTES # (AUTO) 0.9 K/uL (0.0-1.0); MONOCYTES % (AUTO) 9.6 % (1.7-9.3); NEUTROPHILS # (AUTO) 5.4 K/uL (1.8-7.7); NEUTROPHILS % (AUTO) 58.9 % (40.0-70.0); PLATELET COUNT (AUTO) 361 K/uL (130-430); RED BLOOD CELL COUNT(AUTO) 3.94 MIL/uL (4.2-6.2); RED CELL DISTRIBUTION WIDTH 14.1 % (9.0-15.0); WHITE BLOOD COUNT (AUTO) 9.2 K/uL (4.8-10.8)
[2022-09-08 12:09] VITALS: BP_SYST 148; PULSE 98; RESP 20; TEMP 97.6; O2SAT 96
[2022-09-08 12:15] LABS: ANION GAP 6 (5-15); CALCIUM 7.7 mg/dL (8.4-11.0); CHLORIDE 103 mmol/L (98-107); CREATININE 0.97 mg/dL (0.55-1.30); GFR AFRICAN AMERICAN 78 mL/min (>90); GLUCOSE 158 mg/dL (74-106); UREA NITROGEN, BLOOD 12 mg/dL (8-21)
[2022-09-08 12:22] LABS: ALANINE AMINOTRANSFERASE 38 U/L (12-78); ALBUMIN 2.9 g/dL (3.4-4.8); ASPARTATE AMINOTRANSFERASE 27 U/L (10-37); TOTAL BILIRUBIN 0.2 mg/dL (0.0-1.0)
--- NOTE | 2022-09-08 13:00 | NUR ---
Patient sleeping with no sign or distress at this time.
[2022-09-08] MEDS ORDERED: ONDANSETRON HCL 4 MG/2 ML VIAL IVP PRN (14:00)
[2022-09-08] MEDS ORDERED: POTASSIUM CHLORIDE 20 MEQ TAB.PRT.SR PO PRN (14:00)
[2022-09-08] MEDS ORDERED: MORPHINE 2 MG/ML INJ. SYRINGE IVP PRN (14:00)
[2022-09-08] MEDS ORDERED: LORazepam 2 MG/ML VIAL IVP PRN (14:00)
[2022-09-08] MEDS ORDERED: ZOLPIDEM TARTRATE 5 MG TABLET PO PRN (14:00)
[2022-09-08] MEDS ORDERED: MAGNESIUM SULFATE 50 ML IV PRN (14:00)
[2022-09-08] MEDS ORDERED: MUPIROCIN 2% TOPICAL OINTMENT 22 GM NS PRN (14:00)
[2022-09-08] MEDS ORDERED: DOCUSATE SODIUM 100 MG CAPSULE PO PRN (14:00)
[2022-09-08] MEDS ORDERED: ACETAMINOPHEN 325 MG TABLET PO PRN ×2 (14:00→14:15)
[2022-09-08] MEDS: NACL 0.9% 1,000 ML IV SCH (14:15)
--- NOTE | 2022-09-08 14:23 | NUR ---
Admit bed requested Patient will be admitted to care of . Admitted to TELE unit. Diagnosis TIA Inpatient (Yes or No) YES Observation (Yes or No) NO Orientation concerns or request close to nursing station (Yes or No) NO Covid Status NA On vent or bipap NO Isolation requirements NO Needs a sitter NO From Home (Yes or if No enter name of facility) HOME Requires Dialysis (Yes or No) NO Med Rec Completed (Yes of No) YES
--- NOTE | 2022-09-08 15:37 | NUR ---
Patient had family come into ED to bring some belongings and food. Patient awaiting admission to hospital at this time.
--- NOTE | 2022-09-08 16:06 | NUR ---
LATE ENTRY: Patient diagnosed with stroke. Patient educated on acute phase of stroke and what to expect during emergency department stay. Specifically instructed on nursing interventions (NIHSS, Neuro checks and frequency of nursing interventions), and keeping them abreast of next actions. Patient and/or family verbalized understanding.
--- NOTE | 2022-09-08 16:06 | NUR ---
Patient will be admitted to care of Dr. Washington. Admitted to telemetry unit. Will go to room 106A. Belongings list completed. Complete and up to date summary report printed. SBAR report to be given at bedside with opportunity for questions.
[2022-09-08 16:30] VITALS: BP_SYST 148; PULSE 118; RESP 20; TEMP 96.8; O2SAT 98
--- NOTE | 2022-09-08 16:30 | NUR ---
ADMISSION NOTE Received patient from ER via gurney. Patient admitted with diagnosis OF TIA. Patient is awake, alert, oriented X 4 verbally responsive. Pt denies any pain or discomfort at this time. Patient oriented to hospital room, call light, toileting, pain management and safety-teach back done.Bed alarm on, side rails up for safety. Personal belongings checked and Belongings List documented. Call light within reach.
[2022-09-08] MEDS: MORPHINE 2 MG/ML INJ. SYRINGE IVP PRN ×2 (16:36→20:49)
--- NOTE | 2022-09-08 16:48 | NUR ---
CONSULTATION PAGED/CALLED Reason for Consultation: TIA Person Who was Notified: Dr. Carey notified Consulting Physician: Dr. Carey Environmental Field Services Technician Specialty: neuro Ordering Physician: Dr. Washington
--- NOTE | 2022-09-08 17:00 | NUR ---
Swallow screen : Swallow screen done,patient passed.
[2022-09-08] MEDS ORDERED: DEXTROSE 50% JECT 50 ML DISP.SYRIN IVP PRN (18:15)
[2022-09-08] MEDS ORDERED: INSULIN LISPRO SLIDING SCALE 100 UNITS/ML, 3 ML VIAL (humaLOG) SUBCUT PRN (18:15)
--- NOTE | 2022-09-08 18:55 | NUR ---
CLOSING NOTES Pt stable, no complain of pain at this time. Glucose check was 125 , no coverage given. Pt ate 100 % of dinner. MD came in to see pt. Side rails up fro safety. Bed alarm on, Personal belongings and call light within reach.
--- NOTE | 2022-09-08 19:30 | NUR ---
OPENING NOTE Patient laying in bed, awake and stable. No s/s of respiratory distress, breathing even and unlabored. No complaints of pain or discomfort at this time. Plan of care for shift communicated with pt. IV patent with fluids running. Fall and safety precaution in place. Bed at lowest position, bed alarm on, and call light with in reach.
[2022-09-08 19:45] VITALS: O2SAT 98
[2022-09-08 20:00] VITALS: BP_SYST 133; PULSE 89; RESP 18; TEMP 97.2; O2SAT 98
--- NOTE | 2022-09-09 | NUR ---
OPENING NOTE Patient laying in bed with eyes closed. No s/s of respiratory distress, breathing even and unlabored. No complaints of pain or discomfort at this time. Plan of care for shift communicated with ptHerminia ramsey with fluids running. Fall and safety precaution in place. Bed at lowest position, bed alarm on, and call light with in reach. Addendum: 09/09/22 at 0537 by Sally Ortiz LVN CORRECTION: LEE
[2022-09-09 00:06] VITALS: BP_SYST 147; PULSE 92; RESP 20; TEMP 97.7; O2SAT 99
[2022-09-09] MEDS: MORPHINE 2 MG/ML INJ. SYRINGE IVP PRN ×3 (00:44→16:31)
[2022-09-09] MEDS: NACL 0.9% 1,000 ML IV SCH (02:43)
--- NOTE | 2022-09-09 04:10 | NUR ---
ROUNDS Patient laying in bed, awake and stable. No s/s of respiratory distress, breathing even and unlabored. No complaints of pain or discomfort at this time. Asked pt if she was still nauseous pt stated no she is not. Fall and safety precaution in place. Bed at lowest position, bed alarm on, and call light with in reach.
[2022-09-09 05:18] LABS: BASOPHILS # (AUTO) 0.1 K/uL (0.0-0.2); BASOPHILS % (AUTO) 0.8 % (0.0-2.0); EOSINOPHILS # (AUTO) 0.2 K/uL (0.0-0.4); HEMATOCRIT 35.4 % (36-48); HEMOGLOBIN 11.7 g/dL (12.0-16.0); LYMPHOCYTES # (AUTO) 3.7 K/uL (1.0-5.5); MEAN CORPUSCULAR HEMOGLOBIN 30 pg (27-31); MEAN CORPUSCULAR HGB CONC 33 % (32-36); MEAN CORPUSCULAR VOLUME 90 fL (79.0-98.0); MONOCYTES # (AUTO) 0.7 K/uL (0.0-1.0); MONOCYTES % (AUTO) 8.1 % (1.7-9.3); NEUTROPHILS # (AUTO) 4.1 K/uL (1.8-7.7); NEUTROPHILS % (AUTO) 47.1 % (40.0-70.0); PLATELET COUNT (AUTO) 355 K/uL (130-430); RED BLOOD CELL COUNT(AUTO) 3.93 MIL/uL (4.2-6.2); RED CELL DISTRIBUTION WIDTH 14.1 % (9.0-15.0); WHITE BLOOD COUNT (AUTO) 8.8 K/uL (4.8-10.8)
[2022-09-09 05:54] LABS: CALCIUM 7.6 mg/dL (8.4-11.0); CREATININE 0.81 mg/dL (0.55-1.30)
--- NOTE | 2022-09-09 07:20 | NUR ---
MORNING NOTES Received pt. in bed ,alert and verbally responsive.Denies any pain or discomfort at this time.Vital signs taken, Side rails up for safety. Bed alarm on, personal belongings and call light within reach.
--- NOTE | 2022-09-09 07:31 | NUR ---
OPENING NOTE Patient laying in bed, awake and stable. No s/s of respiratory distress, breathing even and unlabored. No complaints of pain or discomfort at this time. Pt ambulated to restroom via walker, gait steady but weak. All needs met throughout shift. Fall and safety precaution in place. Bed at lowest position, bed alarm on, and call light with in reach. Addendum: 09/09/22 at 0733 by Sally Ortiz LVN CORRECTION: CLOSING NOTE
[2022-09-09 08:00] VITALS: BP_SYST 144; PULSE 85; RESP 18; TEMP 97.1; O2SAT 97; O2SAT 98
[2022-09-09] MEDS ORDERED: ASPIRIN 81 MG TABLET(ECOTRIN) PO SCH (09:00)
[2022-09-09] MEDS ORDERED: TAMSULOSIN HCL 0.4 MG CAP PO SCH (09:00)
[2022-09-09] MEDS ORDERED: lisinopriL 20 MG TABLET PO SCH (09:00)
[2022-09-09 12:00] VITALS: BP_SYST 119; PULSE 98; RESP 18; TEMP 97.8
--- NOTE | 2022-09-09 12:00 | NUR ---
ROUNDING NOTES Pt came back from CT-scan,stable and resting at this time. No complain of pain or discomfort at this time. Bed rails up for safety, call light within reach
[2022-09-09] MEDS ORDERED: ASPI-1393 PO (13:29)
[2022-09-09] MEDS ORDERED: LIP20 PO (13:29)
[2022-09-09 16:00] VITALS: BP_SYST 108; PULSE 110; RESP 18; TEMP 98; O2SAT 100
[2022-09-09 16:04] VITALS: BP_SYST 108; PULSE 94; RESP 18; TEMP 98; O2SAT 99
--- NOTE | 2022-09-09 16:10 | NUR ---
DC TELE: DOWNGRADE PATIENT TO MEDICAL SURGICAL,PATIENT IS BEING DISCHARGED HOME.
--- NOTE | 2022-09-09 16:19 | NUR ---
At approx 1605 call came into CM dept, stating patient was refusing PT eval as well as PT at home. This CM went to patient's room to discuss importance of evaluation for PT, upon entering the room PT was in the room talking with the patient. Patient did consent to PT eval as well as receiving PT. Patient understood the importance for evaluation, even though she stated she has chronic pain.
--- NOTE | 2022-09-09 16:19 | NUR ---
PHYSICAL THERAPY: PATIENT AMBULATING IN THE HALLWAY VIA FWW WITH PHYSICAL THERAPIST SUPERVISION.
--- NOTE | 2022-09-09 16:34 | NUR ---
Iv pain meds: Patient c/op generalized pain and requested for pain medications.Due iv morphine given per request.no problem.
--- NOTE | 2022-09-09 18:35 | NUR ---
DISCHARGE NOTE Pt stable, discharged home per MD order.Daughter picked her up. IV removed,no swelling or bleeding noted.
== END 2022-09-09 18:35 | disposition home health service (06) ==
LOC: SED 10:39 → STU 15:00
PROVIDERS: ADMIT General Practice; ATTEND General Practice
DX: I63.9 Cerebral infarction, unspecified (principal); G89.29 Other chronic pain; M62.838 Other muscle spasm; E11.43 Type 2 diabetes mellitus with diabetic autonomic (poly)neuropathy; I10 Essential (primary) hypertension; E44.0 Moderate protein-calorie malnutrition; R26.81 Unsteadiness on feet; K21.9 Gastro-esophageal reflux disease without esophagitis; E78.00 Pure hypercholesterolemia, unspecified; K50.90 Crohn's disease, unspecified, without complications; M19.90 Unspecified osteoarthritis, unspecified site; E66.9 Obesity, unspecified; J45.909 Unspecified asthma, uncomplicated; Z79.82 Long term (current) use of aspirin; Z87.442 Personal history of urinary calculi; Z79.899 Other long term (current) drug therapy
CPT/HCPCS: 96361 ×2; 96374; 96376 ×2; 80053; 82962; 83037; 83880; 84443; 85025 ×2; 84484; 36415 ×2; 93005; 71045; 70450; 70496; 70498; 76376; 99291; 99292; 96375; 80061; 80048; 83735; 70551; 97116; 97163; J2270 ×2; Q9967; J7030 ×2; G0378 ×2; J2060; J2405